=== PATIENT | female | born 1995 | race Caucasian/White ===

== ENCOUNTER 2017-03-05 13:56 | Emergency (ER) | payer OTHER ==
[~2017-03-05 13:56] MED LIST: HYDR-971 PO
[2017-03-05] MEDS ORDERED: IV NORMAL SALINE 1,000ML 1,000 ML IV ONE (14:30)
--- NOTE | 2017-03-05 14:32 | ED.ADGEN ---
Past History Past Medical History: No Pertinent History Past Surgical History: No Surgical History Alcohol Use: None Drug Use: None Adult General Chief Complaint Chief Complaint abdominal cramping, vaginal bleeding HPI HPI Patient is a 21 year old female who presents with abdominal cramping, vaginal bleeding approximately 1 pad per hour, started 2 days ago. She hasn't taken anything today for her symptoms. She had her norplant arm control removed a week ago. She started on oral control. The reason the norplant was removed was due to prolonged breakthrough bleeding. She's had an appendectomy in the past, denies other vaginal bleeding, no changes in urination or bowel movement. Review of Systems Review of Systems Constitutional: Denies fever or chills [] Eyes: Denies change in visual acuity, redness, or eye pain [] HENT: Denies nasal congestion or sore throat [] Respiratory: Denies cough or shortness of breath [] Cardiovascular: denies chest pain GI: Denies nausea, vomiting, bloody stools or diarrhea [] : Denies dysuria or hematuria [] Musculoskeletal: Denies back pain or joint pain, reports left arm pain of the upper arm where the norplant was removed. Integument: Denies rash or skin lesions [] Neurologic: Denies headache, focal weakness or sensory changes [] Current Medications Current Medications Current Medications Medications (Trade) Dose Ordered Sig/Radha Start Time Stop Time Status Last Admin Dose Admin Sodium Chloride (Iv Sodium Chloride 0.9% 1,000ml) 1,000 ml @ 1,000 mls/hr 1X ONCE 03/05/17 14:30 03/05/17 14:30 DC Allergies Allergies Allergies Coded Allergies Type Severity Reaction Last Updated Verified No Known Allergies Allergy Unknown 08/20/16 Yes Physical Exam Physical Exam Constitutional: Well developed, well nourished, no acute distress, non-toxic appearance. [] HENT: Normocephalic, atraumatic, bilateral external ears normal, oropharynx moist, no oral exudates, nose normal. [] Eyes: PERRLA, EOMI, conjunctiva normal, no discharge. [] Neck: Normal range of motion, no tenderness, supple, no stridor. [] Cardiovascular:Heart rate regular rhythm, no murmur [] Lungs & Thorax: Bilateral breath sounds clear to auscultation [] Abdomen: Bowel sounds normal, soft, no tenderness, no masses, no pulsatile masses. no guarding or peritoneal signs Skin: Warm, dry, no erythema, no rash. [] Back: No tenderness, no CVA tenderness. [] Extremities: LUE with ttp no erythema or fluctuance, no edema or discoloration , pulse intact Neurologic: Alert and oriented X 3, normal motor function, normal sensory function, no focal deficits noted. [] Psychologic: Affect normal, judgement normal, mood normal. [] Current Patient Data Vital Signs Vital Signs Date Time Temp Pulse Resp B/P Pulse Ox O2 Delivery O2 Flow Rate FiO2 03/05/17 13:56 98.5 82 18 97 Room Air Lab Results Laboratory Tests Test 03/05/17 14:30 03/05/17 14:33 POC Urine HCG, Qualitative hcg negative (Negative) POC Hemoglobin 13.6gm/dL POC Hematocrit 40% POC Sodium 140mmol/L (135-145) POC Potassium 3.4mmol/L (3.5-5.0) L POC Chloride 98mmol/L (98-110) POC Total CO2 26mmol/L (23-32) Anion Gap 21mmol/L (6-14) H POC Blood Urea Nitrogen 9mg/dL (8-26) POC Creatinine 0.8mg/dL (0.5-1.4) Glucose Level 89mg/dL (60-99) POC Ionized Calcium ([place]ney) 1.21mmol/L (1.13-1.32) EKG EKG [] Radiology/Procedures Radiology/Procedures [] Course & Med Decision Making Course & Med Decision Making Pertinent Labs and Imaging studies reviewed. (See chart for details) ucg negative, poc shows normal hemoglobin. Pt given toradol IV, return precautions given. Final Impression Final Impression Menorrhagia [] Problems: Dragon Disclaimer Dragon Disclaimer This electronic medical record was generated, in whole or in part, using a voice recognition dictation system. MAGALY JOSE MD Mar 05, 2017 14:32
[2017-03-05 14:36] LABS: HEMOGLOBIN ISTAT 13.6 gm/dL; POTASSIUM ISTAT 3.4 mmol/L (3.5-5.0)
[2017-03-05] MEDS ORDERED: IBUP600T16 PO (14:52)
[2017-03-05 15:00] LABS: BILIRUBIN,URINE NEG (NEG); CLARITY,URINE CLOUDY; COLOR,URINE AMBER; GLUCOSE,URINE NEG (NEG); NITRITE,URINE NEG (NEG); UROBILINOGEN,URINE 1 mg/dL (0.2 mg/dL)
[2017-03-05 15:05] VITALS: BP 103/65
[2017-03-05] MEDS ORDERED: KETOROLAC 30 MG/ML VIAL. IV ONE (15:10)
== END 2017-03-05 15:05 | disposition home or self-care (01) ==
LOC: ER 13:56
DX: N92.0 Excessive and frequent menstruation with regular cycle (principal); R10.9 Unspecified abdominal pain
CPT/HCPCS: 80047; 81003; 84703; 99284; J1885; 81025

== ENCOUNTER 2017-07-25 09:49 | Emergency (ER) | payer OTHER ==
[~2017-07-25] VITALS: Ht 172.7 cm; Wt 49.9 kg
[~2017-07-25 09:49] MED LIST changes: +IBUP600T16 PO
[2017-07-25 10:33] LABS: BACTERIA,URINE 0 /HPF (0-FEW); BILIRUBIN,URINE NEG (NEG); CLARITY,URINE CLEAR; COLOR,URINE STRAW; GLUCOSE,URINE NEG (NEG); NITRITE,URINE NEG (NEG); RBC,URINE 0 /HPF (0-2); SQUAMOUS EPITHELIAL CELL,UR FEW /LPF; UROBILINOGEN,URINE 0.2 mg/dL (0.2 mg/dL); WBC,URINE 0 /HPF (0-4)
--- NOTE | 2017-07-25 10:57 | PHYS DOC ---
General Chief Complaint: ABDOMINAL PAIN Stated Complaint: ABD PAIN Time Seen by MD: 09:51 Source: patient, old records Exam Limitations: no limitations Problems: History of Present Illness Initial Comments Patient is a 22-year-old female who comes in the ED complaining of abdominal discomfort. Patient states that she began feeling lower abdominal discomfort last night. She had dinner and went to bed feeling well. This morning she states she awoke with somewhat worsening of her abdominal discomfort. She says now she has mild discomfort described as cramping across her entire lower abdomen. The discomfort is described as mild to moderate. No relationship to by mouth intake , urination, bowel movements, or activity noted. No exacerbating or relieving factors. She denies any bowel or bladder symptoms. Her last menstrual period was one week ago and she has had a prior appendectomy. She's had decreased appetite today but no fever chills sweats or myalgias. She denies malaise or fatigue and in general feels well other than the discomfort. No pre-arrival treatment. The patient does mention that they have been doing increased situps preparing for a PT test. She's also been around sick contacts with viral gastrointestinal infections. She denies recent travel or any history of immunodeficiency. Timing/Duration: 24 hours Severity: mild Modifying Factors: improves with other Associated Symptoms: other Allergies: Coded Allergies: No Known Allergies (Verified Allergy, Unknown, 08/20/16) Past Medical History Medical History: other (menorrhagia) Surgical History: appendectomy Social History Smoker: non-smoker Alcohol: none Drugs: none Review of Systems Constitutional: denies chills, denies diaphoresis, denies fever, denies malaise Respiratory: denies cough, denies shortness of breath Cardiovascular: denies chest pain, denies palpitations, denies syncope Gastrointestinal: abdominal pain, denies constipation, denies diarrhea, denies nausea, denies vomiting Genitourinary: denies discharge, denies dysuria, denies frequency, denies hematuria Musculoskeletal: denies back pain, denies joint swelling, denies neck pain Psychiatric/Neurological: denies headache, denies numbness, denies paresthesia Physical Exam General Appearance: WD/WN, no apparent distress Ear, Nose, Throat: hearing grossly normal, normal ENT inspection Neck: non-tender, supple Respiratory: normal breath sounds, no respiratory distress Cardiovascular: normal peripheral pulses, regular rate, rhythm Gastrointestinal: soft (nondistended, very mild lower abdominal tenderness without rebound, guarding or masses palpated. Negative Melgar and McBurney, no skin changes, bowel sounds are normal.) Back: no CVA tenderness, no vertebral tenderness Extremities: non-tender, normal inspection Neurologic/Psychiatric: no motor/sensory deficits, alert, normal mood/affect, oriented x 3 Skin: normal color, warm/dry Orders, Labs, Meds Urinalysis unremarkable, urine negative. Previously well 22-year-old female comes to the ED with less than 24 hours lower abdominal cramping, mild loss of appetite. Urine studies and physical exam unremarkable, her vital signs within normal limits. No indication for further emergent testing noted, I discuss symptomatic treatment and close PCP follow-up, as she may have an evolving process and just be the initial stages. She expressed agreement and understanding with the treatment plan. Departure Time of Disposition: 10:55 Disposition: 01 HOME, SELF-CARE Diagnosis: abdominal pain Condition: STABLE Patient Instructions: Abdominal Pain (Nonspecific) Additional Instructions: As discussed no specific emergent cause noted in the emergency department to explain your abdominal discomfort. You may be in the early stages of a viral or bacterial infection that is still evolving. Work excuse for today. Clear liquids today, advance diet as tolerated tomorrow. [id number] Tylenol and Pepcid as well as Pepto-Bismol, etc. as needed. Prescription: Dicyclomine, take as directed. Follow-up on post tomorrow for recheck and further evaluation if necessary. Return to ED with new or changing symptoms. CLARIBEL EID DO Jul 25, 2017 10:57
[2017-07-25] MEDS ORDERED: DICY20TA3 PO (10:58)
[2017-07-25 11:06] VITALS: BP 104/67
== END 2017-07-25 11:05 | disposition home or self-care (01) ==
LOC: ER 09:49
DX: R10.30 Lower abdominal pain, unspecified (principal); R63.0 Anorexia; Z90.49 Acquired absence of other specified parts of digestive tract
CPT/HCPCS: 81001; 81025; 99283

== ENCOUNTER 2017-08-06 20:43 | Emergency (ER) | payer OTHER ==
[~2017-08-06] VITALS: Ht 172.7 cm; Wt 49.7 kg
[~2017-08-06 20:43] MED LIST changes: +DICY20TA3 PO
[2017-08-06 21:21] LABS: BACTERIA,URINE FEW /HPF (0-FEW); BILIRUBIN,URINE NEG (NEG); CLARITY,URINE CLEAR; COLOR,URINE YELLOW; GLUCOSE,URINE NEG (NEG); NITRITE,URINE NEG (NEG); RBC,URINE 0 /HPF (0-2); SQUAMOUS EPITHELIAL CELL,UR MOD /LPF; UROBILINOGEN,URINE 1 mg/dL (0.2 mg/dL)
[2017-08-06] MEDS ORDERED: cefTRIAXone IM 250 MG VIAL IM ONE (21:45)
[2017-08-06] MEDS ORDERED: DOXYCYCLINE HYCLATE 100 MG TABLET PO ONE (21:45)
[2017-08-06] MEDS ORDERED: DOXY100T PO (21:49)
[2017-08-06] MEDS ORDERED: NAPR500T PO (21:49)
--- NOTE | 2017-08-06 21:50 | PHYS DOC ---
Past History Past Medical History: No Pertinent History Past Surgical History: Appendectomy Alcohol Use: None Drug Use: None Adult General Chief Complaint Chief Complaint: ABDOMINAL PAIN HPI HPI Patient is a 22 year old female who presents with lower abdominal pain. This episode started last night. She had one episode of vomiting. No diarrhea. No urinary complaints. LMP 07/14/17 with no abnormal bleeding or discharge. No fever. She has had multiple visits here for this lower abdominal pain. Most recent was 914. She had a pelvic ultrasound performed here in November 2016 that was negative. no recent travel. Review of Systems Review of Systems Constitutional: Denies fever or chills Eyes: Denies change in visual acuity, redness, or eye pain HENT: Denies nasal congestion or sore throat Respiratory: Denies cough or shortness of breath Cardiovascular: No chest pain GI: POS lower abdominal pain, nausea, vomiting x 1; NO bloody stools or diarrhea : Denies dysuria or hematuria; normal menses. Musculoskeletal: Denies back pain or joint pain Integument: Denies rash or skin lesions Neurologic: Denies headache, focal weakness or sensory changes Allergies Allergies Allergies Coded Allergies Type Severity Reaction Last Updated Verified No Known Allergies Allergy Unknown 08/20/16 Yes Physical Exam Physical Exam Constitutional: Well developed, well nourished, no acute distress, non-toxic appearance. HENT: Normocephalic, atraumatic, bilateral external ears normal, oropharynx moist, no oral exudates, nose normal. Eyes: PERRLA, EOMI, conjunctiva normal, no discharge. Neck: Normal range of motion, no tenderness, supple, no stridor. Cardiovascular:Heart rate regular rhythm, no murmur Lungs & Thorax: Bilateral breath sounds clear to auscultation Abdomen: Bowel sounds normal, soft, minimal tenderness to lower abdomen, no masses, no pulsatile masses. : director digital strategy present. Pelvic exam with normal external exam. Minimal discharge ; no bleeding. PLUS cervical motion tenderness (replicates pain she is feeling) Skin: Warm, dry, no erythema, no rash. Back: No tenderness, no CVA tenderness. Extremities: No tenderness, no cyanosis, no clubbing, ROM intact, no edema. Neurologic: Alert and oriented X 3, normal motor function, normal sensory function, no focal deficits noted. Current Patient Data Vital Signs Vital Signs Date Time Temp Pulse Resp B/P (MAP) Pulse Ox O2 Delivery O2 Flow Rate FiO2 08/06/17 20:43 99.1 75 14 99 Room Air Lab Results Laboratory Tests Test 08/06/17 20:48 08/06/17 21:09 Urine Collection Type Unknown Urine Color Yellow Urine Clarity Clear Urine pH 5.5 Urine Specific [place] 1.025 Urine Protein Neg (NEG-TRACE) Urine Glucose (UA) Neg mg/dL (NEG) Urine Ketones (Stick) Neg mg/dL (NEG) Urine Blood Neg (NEG) Urine Nitrite Neg (NEG) Urine Bilirubin Neg (NEG) Urine Urobilinogen Dipstick 1 mg/dL (0.2 mg/dL) Urine Leukocyte Esterase Neg (NEG) Urine RBC 0 /HPF (0-2) Urine WBC 1-4 /HPF (0-4) Urine Squamous Epithelial Cells Mod /LPF Urine Bacteria Few /HPF (0-FEW) Urine Mucus Mod /LPF POC Urine HCG, Qualitative hcg negative (Negative) Course & Med Decision Making Course & Med Decision Making Evaluated patient. My differential for abdominal pain includes but is not limited to cholelithiasis or cholecystitis; renal stones; ureterolithiasis; pancreatitis; urinary tract infection; bowel obstruction; irritable bowel, pelvic infection, . No evidence of surgical abdomen. UA sent and is negative and negative UCG. Pelvic exam with POS Cervical motion tenderness. Cultures sent and pending. Will treat and have her f/u with CHEMICAL APPLICATOR. TREATED HERE WITH ROCEPHIN IM AND DOXYCYCLINE PO WITH RX FOR REMAINDER OF DOXYCYCLINE COURSE. Rx Naprosyn as well. I have spoken with the patient and/or caregivers. I have explained the patient' s condition, diagnosis and treatment plan based on the information available to me at this time. I have answered the patient's and/or caregiver's questions and addressed any concerns. The patient and/or caregivers have as good an understanding of the patient's diagnosis, condition and treatment plan as can be expected at this point. The patient's condition is stable and appropriate for discharge from the emergency department. The patient will pursue further outpatient evaluation with the primary care physician or other designated or consulting physician as outlined in the discharge instructions. The patient and/or caregivers are agreeable to this plan of care and follow-up instructions have been explained in detail. The patient and/or caregivers have received these instructions in written format and have expressed an understanding of the discharge instructions. The patient and/or caregivers are aware that any significant change in condition or worsening of symptoms should prompt an immediate return to this or the closest emergency department or a call to 911. Andrés Disclaimer Dragon Disclaimer This chart was dictated in whole or in part using Voice Recognition software in a busy, high-work load, and often noisy Emergency Department environment. It may contain unintended and wholly unrecognized errors or omissions. Departure Departure: Impression: Primary Impression: Cervicitis Disposition: HOME, SELF-CARE Condition: STABLE Referrals: OBDULIO LARSEN DO, [facility] (PCP) Patient Instructions: Cervicitis Additional Instructions: Cultures are sent and will not be resulted for up to 2 weeks. You are being treated regardless. You were given a shot here and your first dose of the pill antibiotic. You need to fill the pill antibiotic and continue it tomorrow. You are to follow up with a vocational psychologist for your Pap smear as one was not done here in the ER. Your vocational psychologist can also follow up on the pelvic pain and on the cultures. Scripts Naproxen (NAPROSYN) 500 Mg Tablet 1 TAB PO BID, #30 TAB 1 Refill Prov: LISBETH MCNEIL MD 08/06/17 Doxycycline Hyclate (DOXYCYCLINE HYCLATE) 100 Mg Tablet 1 TAB PO BID, #14 TAB Prov: LISBETH MCNEIL MD 08/06/17 LISBETH MCNEIL MD Aug 06, 2017 21:50
[2017-08-06 21:55] VITALS: BP 133/69
[2017-08-08 22:08] LABS: CHLAMYDIA PROBE Negative (Negative)
== END 2017-08-06 21:58 | disposition home or self-care (01) ==
LOC: ER 20:43
DX: N72 Inflammatory disease of cervix uteri (principal); R11.2 Nausea with vomiting, unspecified
CPT/HCPCS: 36415; 81001; 81025; 87491; 87591; 96372; 99284; J0696

== ENCOUNTER 2018-01-02 17:20 | Emergency (ER) | payer OTHER ==
[~2018-01-02 17:20] MED LIST changes: +DOXY100T PO; +NAPR-683 PO
--- NOTE | 2018-01-02 18:00 | ED.ADGEN ---
Past History Past Medical History: No Pertinent History Past Surgical History: Appendectomy Alcohol Use: None Drug Use: None Adult General Chief Complaint Chief Complaint ".. I was having some irregular periods... and spotting... and started getting some cramping... so [facility] checked me for ... and they called me and said it was positive... " HPI HPI Patient is a 22 year old female who presents with above hx and complaint abd. pain with + test at [facility]. Pt. No hx prior , STD's or trauma. No travel in last six months or hx of trauma. Lifetime sex partners x5. Pt. no hx of health problems. Pain is worse than "period cramps". Pt. localized to lower pelvis. Hx. previous abd. surgery- appendix. Review of Systems Review of Systems Constitutional: Denies fever or chills [] Eyes: Denies change in visual acuity, redness, or eye pain [. Glasses. ] HENT: Denies nasal congestion or sore throat [] Respiratory: Denies cough or shortness of breath [] Cardiovascular: No additional information not addressed in HPI [] GI: Pelvic abdominal pain, nausea. Denies vomiting, bloody stools or diarrhea [ Os closed but bleeding. Very mild Cervical motion tenderness. Rectal hard stool in vault. Very mild rebound pain to pelvic. : Denies dysuria or hematuria [] Musculoskeletal: Denies back pain or joint pain [] Integument: Denies rash or skin lesions [] Neurologic: Denies headache, focal weakness or sensory changes [] Endocrine: Denies polyuria or polydipsia [] All other systems were reviewed and found to be within normal limits, except as documented in this note. Family History Family History Non-contributory Current Medications Current Medications Current Medications Medications (Trade) Dose Ordered Sig/Radha Start Time Stop Time Status Last Admin Dose Admin Lactated Ringer's 1,000 ml @ 1,000 mls/hr 1X ONCE 01/02/18 18:15 01/02/18 19:14 DC 01/02/18 18:30 1,000 MLS/HR Oxycodone/ Acetaminophen (Percocet 5/325) 2 tab 1X ONCE 01/02/18 18:30 01/02/18 18:35 DC See Nursing for home meds Allergies Allergies Allergies Coded Allergies Type Severity Reaction Last Updated Verified No Known Allergies Allergy Unknown 08/20/16 Yes Physical Exam Physical Exam Constitutional: Well developed, well nourished, Moderately acute distress, non- toxic appearance. [] HENT: Normocephalic, atraumatic, bilateral external ears normal, oropharynx moist, no oral exudates, nose normal. [] Eyes: PERRLA, EOMI, conjunctiva normal, no discharge. [] Neck: Normal range of motion, no tenderness, supple, no stridor. [] Cardiovascular:Heart rate regular rhythm, no murmur [] Lungs & Thorax: Bilateral breath sounds clear to auscultation [] Abdomen: Bowel sounds normal, soft, pelvic tenderness, no masses, no pulsatile masses. Old surgery scars. Min. OS bleeding/ spotting. No localized adnexal tenderness. Some mild cervical motion tenderness. Rectal exam heart stool. Skin: Warm, dry, no erythema, no rash. [] Back: No tenderness, no CVA tenderness. [] Extremities: No tenderness, no cyanosis, no clubbing, ROM intact, no edema. [] Up able to hop up and down with out pelvic pain. Neurologic: Alert and oriented X 3, normal motor function, normal sensory function, no focal deficits noted. [] Psychologic: Affect anxious, judgement normal, mood normal. [] Current Patient Data Vital Signs Vital Signs Date Time Temp Pulse Resp B/P (MAP) Pulse Ox O2 Delivery O2 Flow Rate FiO2 01/02/18 21:20 98.3 64 16 123/71 (88) 98 Room Air Lab Results Laboratory Tests Test 01/02/18 17:50 01/02/18 18:50 01/02/18 19:12 White Blood Count 11.9 x10^3/uL (4.0-11.0) H Red Blood Count 4.69 x10^6/uL (3.50-5.40) Hemoglobin 13.6 g/dL (12.0-15.5) Hematocrit 40.8 % (36.0-47.0) Mean Corpuscular Volume 87 fL (79-100) Mean Corpuscular Hemoglobin 29 pg (25-35) Mean Corpuscular Hemoglobin Concent 33 g/dL (31-37) Red Cell Distribution Width 13.5 % (11.5-14.5) Platelet Count 226 x10^3/uL (140-400) Neutrophils (%) (Auto) 71 % (31-73) Lymphocytes (%) (Auto) 22 % (24-48) L Monocytes (%) (Auto) 5 % (0-9) Eosinophils (%) (Auto) 1 % (0-3) Basophils (%) (Auto) 0 % (0-3) Neutrophils # (Auto) 8.4 x10^3uL (1.8-7.7) H Lymphocytes # (Auto) 2.7 x10^3/uL (1.0-4.8) Monocytes # (Auto) 0.5 x10^3/uL (0.0-1.1) Eosinophils # (Auto) 0.2 x10^3/uL (0.0-0.7) Basophils # (Auto) 0.0 x10^3/uL (0.0-0.2) Maternal Serum HCG Beta Subunit 1178 mIU/mL (0-6) H Sodium Level 138 mmol/L (136-145) Potassium Level 4.2 mmol/L (3.5-5.1) Chloride Level 101 mmol/L (98-107) Carbon Dioxide Level 28 mmol/L (21-32) Anion Gap 9 (6-14) Blood Urea Nitrogen 13 mg/dL (7-20) Creatinine 0.7 mg/dL (0.6-1.0) Estimated GFR (Cockcroft-Gault) 106.7 Glucose Level 89 mg/dL (70-99) Calcium Level 9.1 mg/dL (8.5-10.1) Total Bilirubin 0.6 mg/dL (0.2-1.0) Direct Bilirubin 0.1 mg/dL (0.0-0.2) Aspartate Amino Transferase (AST) 17 U/L (15-37) Alanine Aminotransferase (ALT) 18 U/L (14-59) Alkaline Phosphatase 83 U/L (46-116) Total Protein 7.5 g/dL (6.4-8.2) Albumin 4.1 g/dL (3.4-5.0) Lipase 127 U/L (73-393) Prothrombin Time 10.3 SEC (9.4-11.4) Prothrombin Time INR 1.0 (0.9-1.1) PTT 29 SEC (23-33) Urine Collection Type Unknown Urine Color Yellow Urine Clarity Hazy Urine pH 5.5 Urine Specific [place] 1.025 Urine Protein Neg (NEG-TRACE) Urine Glucose (UA) Neg mg/dL (NEG) Urine Ketones (Stick) 15 mg/dL (NEG) Urine Blood Large (NEG) Urine Nitrite Neg (NEG) Urine Bilirubin Neg (NEG) Urine Urobilinogen Dipstick 0.2 mg/dL (0.2 mg/dL) Urine Leukocyte Esterase Neg (NEG) Urine RBC 6-10 /HPF (0-2) Urine WBC Occ /HPF (0-4) Urine Squamous Epithelial Cells Mod /LPF Urine Bacteria Few /HPF (0-FEW) Urine Mucus Mod /LPF Microbiology 01/02/18 Wet Prep - Final, Complete Microbiology 01/02/18 Wet Prep - Final, Complete EKG EKG [] Radiology/Procedures Radiology/Procedures Ultrasound shows an intermediate stripe of 6 mm. No IUP. Some small nonspecific pelvic fluid. See formal report when available Course & Med Decision Making Course & Med Decision Making Pertinent Labs and Imaging studies reviewed. (See chart for details) Discussed presentation, testing and tx. plan with Dr. López- advised followup. Repeat B-HCG within 3 days. Pt. must also follow up pending cultures and labs. Pt. take vitamins, Pelvic rest. Return if any concerns. Pad counts. Return if any concerns.. Take only Tylenol for pain. Must follow-up and review all labs collected here. [] Final Impression Final Impression 1. Vaginal Bleeding- 2. Abdomen Pain[] 3. Threaten 4. Possible Ectopic - as differential diagnosis 5. B-HCG= 1178 6. Blood Type A+ 7. Leukocytosis- 11.9 Problems: Dragon Disclaimer Dragon Disclaimer This electronic medical record was generated, in whole or in part, using a voice recognition dictation system. JAYY DONOVAN MD Jan 02, 2018 18:00
[2018-01-02] MEDS ORDERED: IV RINGERS SOLUTION,LACTATED 1,000 ML IV ONE (18:15)
[2018-01-02] MEDS ORDERED: oxyCODONE/APAP 5/325 1 TAB TABLET PO ONE (18:30)
[2018-01-02 19:09] LABS: BASO % 0 % (0-3); EOS # 0.2 x10^3/uL (0.0-0.7); EOS % 1 % (0-3); HEMATOCRIT 40.8 % (36.0-47.0); HEMOGLOBIN 13.6 g/dL (12.0-15.5); LYMPH # 2.7 x10^3/uL (1.0-4.8); LYMPH % 22 % (24-48); MEAN CORPUSCULAR HEMOGLOBIN 29 pg (25-35); MEAN CORPUSCULAR HGB CONC 33 g/dL (31-37); MEAN CORPUSCULAR VOLUME 87 fL (79-100); MONO # 0.5 x10^3/uL (0.0-1.1); MONO % 5 % (0-9); NEUT # 8.4 x10^3uL (1.8-7.7); NEUT % 71 % (31-73); PLATELET COUNT 226 x10^3/uL (140-400); RED BLOOD COUNT 4.69 x10^6/uL (3.50-5.40); RED CELL DISTRIBUTION WIDTH 13.5 % (11.5-14.5); WHITE BLOOD COUNT 11.9 x10^3/uL (4.0-11.0)
[2018-01-02 19:15] LABS: ALBUMIN 4.1 g/dL (3.4-5.0); CALCIUM 9.1 mg/dL (8.5-10.1); CREATININE 0.7 mg/dL (0.6-1.0); DIRECT BILIRUBIN 0.1 mg/dL (0.0-0.2); GFR 106.7; POTASSIUM 4.2 mmol/L (3.5-5.1); TOTAL BILIRUBIN 0.6 mg/dL (0.2-1.0); TOTAL PROTEIN 7.5 g/dL (6.4-8.2)
--- NOTE | 2018-01-02 20:24 | RAD ---
EXAM: Obstetrics sonogram. HISTORY: Vaginal bleeding. TECHNIQUE: Transabdominal and transvaginal sonographic imaging of the pelvis was performed. COMPARISON: None. FINDINGS: The uterus measures 8.7 x 3.9 x 3.5 cm. The cervix measures 3.4 cm in length. The endometrial stripe measures 6 mm in thickness. No intrauterine gestational sac is seen. There is a small amount of free fluid within the posterior cul-de-sac. The ovaries are normal in size and demonstrate normal blood flow. There are stable ovarian follicles. IMPRESSION: 1. Small amount of nonspecific pelvic free fluid. 2. No intrauterine gestational sac. Correlate with serial beta hCG levels. If the level which is within expected range for identification of an intrauterine gestational sac or increasing, short-term follow-up is recommended to exclude ectopic . Electronically signed by: Trina Stone MD (01/02/2018 8:21 PM) [facility]
[2018-01-02 20:41] LABS: BILIRUBIN,URINE NEG (NEG); CLARITY,URINE HAZY; COLOR,URINE YELLOW; GLUCOSE,URINE NEG (NEG); NITRITE,URINE NEG (NEG); UROBILINOGEN,URINE 0.2 mg/dL (0.2 mg/dL)
[2018-01-02 20:42] LABS: BACTERIA,URINE FEW /HPF (0-FEW); SQUAMOUS EPITHELIAL CELL,UR MOD /LPF; WBC,URINE OCC /HPF (0-4)
[2018-01-02 21:20] VITALS: BP 123/71
[2018-01-03 23:08] LABS: HCV ANTIBODY <0.1 s/co ratio (0.0-0.9); HEP A IGM ABDY Negative (Negative)
[2018-01-06 14:12] LABS: CHLAMYDIA PROBE Negative (Negative)
== END 2018-01-02 21:20 | disposition home or self-care (01) ==
LOC: ER 17:20
DX: O20.0 Threatened abortion (principal); D72.829 Elevated white blood cell count, unspecified; Z3A.00 Weeks of gestation of pregnancy not specified
CPT/HCPCS: 36415; 76801; 76817; 80048; 80074; 80076; 81001; 83690; 84702; 85025; 85610; 85730; 86593; 86900; 86901; 87491; 87591; 96360; 99285; J7120; Q0111

== ENCOUNTER 2018-01-22 11:05 | Emergency (ER) | payer OTHER ==
[~2018-01-22] VITALS: Ht 147.3 cm; Wt 49.9 kg
[2018-01-22] MEDS ORDERED: IV NORMAL SALINE 1,000ML 1,000 ML IV SCH (11:37)
[2018-01-22 11:58] LABS: BASO % 1 % (0-3); EOS # 0.1 x10^3/uL (0.0-0.7); EOS % 2 % (0-3); HEMATOCRIT 40.4 % (36.0-47.0); HEMOGLOBIN 13.7 g/dL (12.0-15.5); LYMPH # 2.3 x10^3/uL (1.0-4.8); LYMPH % 30 % (24-48); MEAN CORPUSCULAR HEMOGLOBIN 30 pg (25-35); MEAN CORPUSCULAR HGB CONC 34 g/dL (31-37); MEAN CORPUSCULAR VOLUME 87 fL (79-100); MONO # 0.4 x10^3/uL (0.0-1.1); MONO % 6 % (0-9); NEUT # 4.9 x10^3uL (1.8-7.7); NEUT % 63 % (31-73); PLATELET COUNT 204 x10^3/uL (140-400); RED BLOOD COUNT 4.66 x10^6/uL (3.50-5.40); RED CELL DISTRIBUTION WIDTH 13.6 % (11.5-14.5); WHITE BLOOD COUNT 7.8 x10^3/uL (4.0-11.0)
--- NOTE | 2018-01-22 12:16 | PHYS DOC ---
Past History Past Medical History: No Pertinent History Past Surgical History: Appendectomy Alcohol Use: None Drug Use: None Adult General Chief Complaint Chief Complaint: ABDOMINAL PAIN HPI HPI 22-year-old otherwise healthy female presenting to the emergency department today with lower abdominal cramping this started today. 2 weeks ago she was seen for having a miscarriage. She had a negative ultrasound with positive beta- hCG which she was able to follow up with her primary care physician and her hCG was dropping significantly and was subsequent diagnosis of miscarriage. For the last 2 weeks she has been feeling well. The patient started light duty today after a light jog began feeling her cramping. She denies vaginal bleeding, or changes in vaginal discharge. She denies recent STD exposures. Past medical history none Surgical history appendectomy Social history denies smoking drinking or IV drug use. Allergies none ROS negative for chest pain shortness of breath, fevers or chills. All other review of systems is negative unless otherwise noted in history of present illness. ED course: 22-year-old female presenting to the emergency department today with cramping abdominal pain after miscarriage. Upon arrival the patient is afebrile with a normal heart rate. Blood pressure within normal limits. On examination the patient's abdomen is soft nontender non-distended. Negative McBurney's point. Negative Melgar sign. Otherwise exam is unremarkable. Blood work obtained. IV fluids along with pain medication administered. On reexamination the patient is feeling better. Abdomen continues to be soft and nontender. Patient continues to have an elevated beta hCG that is below the discriminatory zone. I offered the patient to attempt an ultrasound here today or to follow-up with OB tomorrow. Patient prefers to follow-up with an formulator tomorrow. She does not have vaginal bleeding and her pain is almost nearly resolved at this point. The patient was then discharged home in stable condition. They were to return if their symptoms worsened or if they were concerned for any reason. [id number] discharge instructions and return precautions were given. Patient' s questions were answered to their satisfaction. Patient is comfortable with plan. Review of Systems Review of Systems SEE ABOVE. Current Medications Current Medications Current Medications Medications (Trade) Dose Ordered Sig/Radha Start Time Stop Time Status Last Admin Dose Admin Fentanyl Citrate (Fentanyl 2ml Vial) 25 mcg PRN Q15MIN PRN 01/22/18 11:45 01/23/18 11:44 01/22/18 11:53 25 MCG Sodium Chloride 1,000 ml @ 1,000 mls/hr Q1H 01/22/18 11:37 01/22/18 12:36 01/22/18 11:52 1,000 MLS/HR Allergies Allergies Allergies Coded Allergies Type Severity Reaction Last Updated Verified No Known Allergies Allergy Unknown 08/20/16 Yes Physical Exam Physical Exam SEE ABOVE Constitutional: Well developed, well nourished, no acute distress, non-toxic appearance. [] HENT: Normocephalic, atraumatic, bilateral external ears normal, oropharynx moist, no oral exudates, nose normal. [] Eyes: PERRLA, EOMI, conjunctiva normal, no discharge. [] Neck: Normal range of motion, no tenderness, supple, no stridor. [] Cardiovascular:Heart rate regular rhythm, no murmur [] Lungs & Thorax: Bilateral breath sounds clear to auscultation [] Abdomen: Bowel sounds normal, soft, no tenderness, no masses, no pulsatile masses. [] Skin: Warm, dry, no erythema, no rash. [] Back: No tenderness, no CVA tenderness. [] Extremities: No tenderness, no cyanosis, no clubbing, ROM intact, no edema. [] Neurologic: Alert and oriented X 3, normal motor function, normal sensory function, no focal deficits noted. [] Psychologic: Affect normal, judgement normal, mood normal. [] Current Patient Data Vital Signs Vital Signs Date Time Temp Pulse Resp B/P (MAP) Pulse Ox O2 Delivery O2 Flow Rate FiO2 01/22/18 11:15 98.6 78 16 99 Room Air Lab Results Laboratory Tests Test 01/22/18 11:47 White Blood Count 7.8 x10^3/uL (4.0-11.0) Red Blood Count 4.66 x10^6/uL (3.50-5.40) Hemoglobin 13.7 g/dL (12.0-15.5) Hematocrit 40.4 % (36.0-47.0) Mean Corpuscular Volume 87 fL (79-100) Mean Corpuscular Hemoglobin 30 pg (25-35) Mean Corpuscular Hemoglobin Concent 34 g/dL (31-37) Red Cell Distribution Width 13.6 % (11.5-14.5) Platelet Count 204 x10^3/uL (140-400) Neutrophils (%) (Auto) 63 % (31-73) Lymphocytes (%) (Auto) 30 % (24-48) Monocytes (%) (Auto) 6 % (0-9) Eosinophils (%) (Auto) 2 % (0-3) Basophils (%) (Auto) 1 % (0-3) Neutrophils # (Auto) 4.9 x10^3uL (1.8-7.7) Lymphocytes # (Auto) 2.3 x10^3/uL (1.0-4.8) Monocytes # (Auto) 0.4 x10^3/uL (0.0-1.1) Eosinophils # (Auto) 0.1 x10^3/uL (0.0-0.7) Basophils # (Auto) 0.0 x10^3/uL (0.0-0.2) EKG EKG [] Radiology/Procedures Radiology/Procedures [] Course & Med Decision Making Course & Med Decision Making Pertinent Labs and Imaging studies reviewed. (See chart for details) [] Dragon Disclaimer Dragon Disclaimer This electronic medical record was generated, in whole or in part, using a voice recognition dictation system. Departure Departure: Impression: Primary Impression: Abdominal pain Disposition: 01 HOME, SELF-CARE Referrals: OBDULIO LARSEN DO, [facility] (PCP) Patient Instructions: Abdominal Pain (Nonspecific) Additional Instructions: Thank you for allowing us to participate in your care today. Followup with our OB Dr. López tomorrow for serial HCG testing and further care. Dr. Giovany López Jr, MD [employer]web site developer in [place], [place] Address: [address] [place] [address] [address], [place] [address] Call your Primary Doctor tomorrow and inform them of your visit today. If you do not have a primary care provider you can ask for a list of our primary care providers. Return to the emergency department you have any new or concerning findings. This should be evaluated by the primary care physician and any necessary consulting services for continued management within a few days after discharge. Return to emergency room if you have any new or concerning symptoms including but not limited to fever, chills, nausea, vomiting, intractable pain, any new rashes, chest pain, shortness of air, uncontrolled bleeding, difficulty breathing, and/or vision loss. JOSELITO OTOOLE MD Jan 22, 2018 12:16
[2018-01-22 12:17] LABS: ALBUMIN 3.8 g/dL (3.4-5.0); CREATININE 0.7 mg/dL (0.6-1.0); DIRECT BILIRUBIN 0.1 mg/dL (0.0-0.2); GFR 106.7; POTASSIUM 3.7 mmol/L (3.5-5.1); TOTAL BILIRUBIN 0.7 mg/dL (0.2-1.0); TOTAL PROTEIN 7.1 g/dL (6.4-8.2)
[2018-01-22 13:06] LABS: BACTERIA,URINE FEW /HPF (0-FEW); BILIRUBIN,URINE NEG (NEG); CLARITY,URINE HAZY; COLOR,URINE YELLOW; GLUCOSE,URINE NEG (NEG); NITRITE,URINE NEG (NEG); RBC,URINE 0 /HPF (0-2); SQUAMOUS EPITHELIAL CELL,UR MOD /LPF; UROBILINOGEN,URINE 1 mg/dL (0.2 mg/dL); WBC,URINE RARE /HPF (0-4)
[2018-01-22 14:10] VITALS: BP 111/67
== END 2018-01-22 14:10 | disposition home or self-care (01) ==
LOC: ER 11:05
DX: R10.30 Lower abdominal pain, unspecified (principal); Z90.49 Acquired absence of other specified parts of digestive tract
CPT/HCPCS: 36415; 80048; 80076; 81001; 81025; 83690; 84702; 85025; 96361; 96374; 99284; J3010; J7030

== ENCOUNTER 2018-02-10 21:01 | Emergency (ER) | payer OTHER ==
[~2018-02-10] VITALS: Ht 299.7 cm; Wt 49.7 kg
[2018-02-10 21:05] VITALS: BP 115/65
--- NOTE | 2018-02-10 21:30 | PHYS DOC ---
Past History Past Medical History: No Pertinent History Past Surgical History: Appendectomy Alcohol Use: None Drug Use: None Adult General Chief Complaint Chief Complaint: NAUSEA/VOMITING/DIARRHEA HPI HPI Patient is a 22-year-old female who presents after having a D&C done today at noon with complaints of vomiting that is nonbloody, no diarrhea, no fevers, no chills. Pain is currently well controlled. Patient started vomiting shortly after the procedure. Patient has no other complaints Review of Systems Review of Systems Constitutional: Denies fever or chills [] HENT: Denies nasal congestion or sore throat [] Respiratory: Denies cough or shortness of breath [] Cardiovascular: No chest pain GI: Denies abdominal pain, , bloody stools or diarrhea. Yes to nausea and vomiting : Denies dysuria or hematuria [] Musculoskeletal: Denies back pain or joint pain [] Integument: Denies rash or skin lesions [] Neurologic: Denies headache, focal weakness or sensory changes [] All other systems were reviewed and found to be within normal limits, except as documented in this note. Current Medications Current Medications Current Medications Medications (Trade) Dose Ordered Sig/Radha Start Time Stop Time Status Last Admin Dose Admin Ondansetron HCl (Zofran) 4 mg 1X ONCE 02/10/18 21:30 02/10/18 21:31 Sodium Chloride 1,000 ml @ 1,000 mls/hr 1X ONCE 02/10/18 21:30 02/10/18 22:29 Allergies Allergies Allergies Coded Allergies Type Severity Reaction Last Updated Verified No Known Allergies Allergy Unknown 08/20/16 Yes Physical Exam Physical Exam Constitutional: Well developed, well nourished, no acute distress, non-toxic appearance. Looks tired HENT: Normocephalic, atraumatic, bilateral external ears normal, oropharynx dry , no oral exudates, nose normal. [] Eyes: EOMI, conjunctiva normal, no discharge. [] Neck: Normal range of motion, trachea midline, no stridor. [] Cardiovascular:Heart rate regular rhythm, no murmur equal pulses normal perfusion Lungs & Thorax: Bilateral breath sounds clear to auscultation on no tachypnea Abdomen: Bowel sounds normal, soft, no tenderness, no masses, no pulsatile masses. [] Skin: Warm, dry, no erythema, no rash. [] Back: Normal range of motion Extremities: No tenderness, no DVT, ROM intact, no edema. [] Neurologic: Alert and oriented X 3, normal motor function, and relates in the ED with normal gait and without assistance no focal deficits noted. [] Psychologic: Affect normal, judgement normal, mood normal. [] EKG EKG [] Radiology/Procedures Radiology/Procedures [] Course & Med Decision Making Course & Med Decision Making Pertinent Labs and Imaging studies reviewed. (See chart for details) 220 no vomiting in the ED [] Dragon Disclaimer Dragon Disclaimer This electronic medical record was generated, in whole or in part, using a voice recognition dictation system. Departure Departure: Impression: Primary Impression: Nausea and vomiting Additional Impression: Post procedure discomfort Disposition: 01 HOME, SELF-CARE Condition: STABLE Referrals: NON,STAFF (PCP) Please follow-up with your doctor for recheck and reevaluation in 2 days Patient Instructions: Nausea and Vomiting Scripts Ondansetron Hcl (ZOFRAN) 4 Mg Tablet 1 TAB PO Q8HRS for 3 Days, #9 TAB Prov: Tylor SOMERS MD 02/10/18 Problem Qualifiers Tylor SOMERS MD Feb 10, 2018 21:30
[2018-02-10] MEDS: ONDANSETRON PF 4 MG/2 ML VIAL. IV ONE ×2 (21:35→22:28)
[2018-02-10] MEDS: IV NORMAL SALINE 1,000ML 1,000 ML IV ONE (21:36)
[2018-02-10 22:17] LABS: CALCIUM 9.2 mg/dL (8.5-10.1); CREATININE 0.9 mg/dL (0.6-1.0); GFR 79.8; POTASSIUM 4.1 mmol/L (3.5-5.1)
[2018-02-10] MEDS ORDERED: ONDA4TAB7 PO (22:22)
== END 2018-02-10 22:35 | disposition home or self-care (01) ==
LOC: ER 21:01
DX: R11.2 Nausea with vomiting, unspecified (principal); G89.18 Other acute postprocedural pain
CPT/HCPCS: 36415; 80048; 96361; 96374; 96376; 99284; J2405; J7030

== ENCOUNTER 2018-03-27 06:01 | Emergency (ER) | payer OTHER ==
[~2018-03-27] VITALS: Ht 149.9 cm; Wt 43.1 kg
[~2018-03-27 06:01] MED LIST changes: +ONDA4TAB7 PO
[2018-03-27] MEDS ORDERED: 0.9 % SODIUM CHLORIDE 10 ML DISP.SYRIN. IV PRN (06:30)
[2018-03-27] MEDS ORDERED: IV NORMAL SALINE 1,000ML 1,000 ML IV SCH (06:30)
[2018-03-27 06:43] LABS: BASO % 0 % (0-3); EOS # 0.2 x10^3/uL (0.0-0.7); EOS % 3 % (0-3); HEMATOCRIT 38.6 % (36.0-47.0); HEMOGLOBIN 13.2 g/dL (12.0-15.5); LYMPH # 2.5 x10^3/uL (1.0-4.8); LYMPH % 38 % (24-48); MEAN CORPUSCULAR HEMOGLOBIN 30 pg (25-35); MEAN CORPUSCULAR HGB CONC 34 g/dL (31-37); MEAN CORPUSCULAR VOLUME 87 fL (79-100); MONO # 0.5 x10^3/uL (0.0-1.1); MONO % 7 % (0-9); NEUT # 3.4 x10^3uL (1.8-7.7); NEUT % 52 % (31-73); PLATELET COUNT 201 x10^3/uL (140-400); RED BLOOD COUNT 4.45 x10^6/uL (3.50-5.40); RED CELL DISTRIBUTION WIDTH 13.1 % (11.5-14.5); WHITE BLOOD COUNT 6.6 x10^3/uL (4.0-11.0)
--- NOTE | 2018-03-27 06:43 | PHYS DOC ---
Past History Past Medical History: No Pertinent History Past Surgical History: Appendectomy, Other Alcohol Use: None Drug Use: None Adult General Chief Complaint Chief Complaint: ABDOMINAL PAIN [facility] 22-year-old female patient states she had a D&C 1 month ago and started to exercise yesterday. Patient complaining of pain in right lower quadrant since yesterday as a constant pain that getting force with movement. Patient denies nausea and vomiting, diarrhea and constipation, urinary symptom, fever and chills, vaginal bleeding or discharge. Rated her pain /10. Review of Systems Review of Systems Constitutional: Denies fever or chills [] Eyes: Denies change in visual acuity, redness, or eye pain [] HENT: Denies nasal congestion or sore throat [] Respiratory: Denies cough or shortness of breath [] Cardiovascular: No additional information not addressed in HPI [] GI: Reports abdominal pain, denies nausea, vomiting, bloody stools or diarrhea [ ] : Denies dysuria or hematuria [] Musculoskeletal: Denies back pain or joint pain [] Integument: Denies rash or skin lesions [] Neurologic: Denies headache, focal weakness or sensory changes [] Endocrine: Denies polyuria or polydipsia [] All other systems were reviewed and found to be within normal limits, except as documented in this note. Allergies Allergies Allergies Coded Allergies Type Severity Reaction Last Updated Verified No Known Allergies Allergy Unknown 08/20/16 Yes Physical Exam Physical Exam Constitutional: Well developed, well nourished, mild distress, non-toxic appearance. [] HENT: Normocephalic, atraumatic Eyes: PERRLA, EOMI, conjunctiva normal, no discharge. [] Neck: Normal range of motion, no tenderness, supple, no stridor. [] Cardiovascular:Heart rate regular rhythm, no murmur [] Lungs & Thorax: Bilateral breath sounds clear to auscultation [] Abdomen: Bowel sounds normal, soft, no tenderness, no masses, no pulsatile masses. [] Skin: Warm, dry, no erythema, no rash. [] Back: No tenderness, no CVA tenderness. [] Extremities: No tenderness, no cyanosis, no clubbing, ROM intact, no edema. [] Neurologic: Alert and oriented X 3, normal motor function, normal sensory function, no focal deficits noted. [] Psychologic: Affect normal, judgement normal, mood normal. [] Current Patient Data Vital Signs Vital Signs Date Time Temp Pulse Resp B/P (MAP) Pulse Ox O2 Delivery O2 Flow Rate FiO2 03/27/18 06:15 98.1 65 18 97 Room Air Lab Results Laboratory Tests Test 03/27/18 05:22 POC Urine HCG, Qualitative hcg negative (Negative) EKG EKG [] Radiology/Procedures Radiology/Procedures [] Course & Med Decision Making Course & Med Decision Making Pertinent Labs reviewed. (See chart for details) []discharge: I've spoken with the patient and/or caregivers. I've explained the patient's condition, diagnosis and treatment plan based on information available to me at this time. I've answered the patient's and/or caregivers questions and addressed any concerns. The patient and/or caregivers have a good understanding the patient's diagnosis, condition and treatment plan as can be expected at this point. Vital signs have been stabilized. The patient's condition is stable for discharge from the emergency department. The patient will pursue further outpatient evaluation with her primary care provider or other designated consulting physician as outlined in the discharge instructions. Patient and/or caregivers are agreeable to this plan of care and follow-up instructions have been explained in detail. The patient and/or caregivers have received these instructions in written format and expressed understanding of these discharge instructions. The patient and her caregivers are aware that if any significant change in condition or worsening of symptoms should prompt him to immediately return to this of the closest emergency department. If an emergent department is not readily available I would encourage him to call 911. Dragon Disclaimer Dragon Disclaimer This electronic medical record was generated, in whole or in part, using a voice recognition dictation system. Departure Departure: Impression: Primary Impression: Strain of abdominal muscle Disposition: HOME, SELF-CARE (at 0755) Condition: IMPROVED Referrals: VIGNESH EARL MD (PCP) Patient Instructions: Muscle Strain Additional Instructions: Drink plenty of liquids Follow-up with your primary care physician in 3-5 days Return to ER if not getting better Apply ice on the affected area Scripts Naproxen (NAPROSYN) 500 Mg Tablet 1 TAB PO BID, #14 TAB 1 Refill Prov: RAQUEL OBREGON MD 03/27/18 RAQUEL OBREGON MD March 27, 2018 06:43
[2018-03-27] MEDS ORDERED: KETOROLAC 30 MG/ML VIAL. IV ONE (06:45)
[2018-03-27 06:50] LABS: BACTERIA,URINE 0 /HPF (0-FEW); BILIRUBIN,URINE NEG (NEG); CLARITY,URINE CLEAR; COLOR,URINE AMBER; GLUCOSE,URINE NEG (NEG); NITRITE,URINE NEG (NEG); RBC,URINE 0 /HPF (0-2); SQUAMOUS EPITHELIAL CELL,UR FEW /LPF; UROBILINOGEN,URINE 1 mg/dL (0.2 mg/dL); WBC,URINE OCC /HPF (0-4)
[2018-03-27 07:14] LABS: ALBUMIN 3.7 g/dL (3.4-5.0); ALBUMIN/GLOBULIN RATIO 1.2 (1.0-1.7); CALCIUM 8.5 mg/dL (8.5-10.1); CREATININE 0.9 mg/dL (0.6-1.0); GFR 79.8; POTASSIUM 3.8 mmol/L (3.5-5.1); TOTAL BILIRUBIN 0.5 mg/dL (0.2-1.0); TOTAL PROTEIN 6.7 g/dL (6.4-8.2)
[2018-03-27] MEDS ORDERED: NAPR-683 PO (07:57)
[2018-03-27 08:05] VITALS: BP 101/59
== END 2018-03-27 08:05 | disposition home or self-care (01) ==
LOC: ER 06:01
DX: S39.011A Strain of muscle, fascia and tendon of abdomen, initial encounter (principal); Z90.49 Acquired absence of other specified parts of digestive tract; X58.XXXA Exposure to other specified factors, initial encounter; Y93.B9 Activity, other involving muscle strengthening exercises; Y99.8 Other external cause status; Y92.89 Other specified places as the place of occurrence of the external cause
CPT/HCPCS: 36415; 80053; 81001; 81025; 83690; 85025; 96374; 99284; J1885; J7030

== ENCOUNTER 2018-07-07 06:54 | Emergency (ER) | payer OTHER ==
[~2018-07-07] VITALS: Ht 149.9 cm; Wt 48.5 kg
--- NOTE | 2018-07-07 07:32 | PHYS DOC ---
Past History Past Medical History: No Pertinent History Past Surgical History: Appendectomy, Other Smoking: Non-smoker Alcohol Use: None Drug Use: None Adult General Chief Complaint Chief Complaint: dizziness HPI HPI Patient is a 23 year old female who presents with complaining of dizziness and near syncope. 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 Patient states she was not able to drive and called her after driving [facility] to the hospital to give her a ride. Patient denies history of the same problem, , focal neuro deficit, vomiting. Review of Systems Review of Systems Constitutional: Denies fever or chills [] Eyes: Denies change in visual acuity, redness, or eye pain [] HENT: Denies nasal congestion or sore throat [] Respiratory: Denies cough or shortness of breath [] Cardiovascular: No additional information not addressed in HPI [] GI: Denies abdominal pain, nausea, vomiting, bloody stools or diarrhea [] : Denies dysuria or hematuria [] Musculoskeletal: Denies back pain or joint pain [] Integument: Denies rash or skin lesions [] Neurologic: Reports dizziness and headache, denies focal weakness or sensory changes. Endocrine: Denies polyuria or polydipsia [] All other systems were reviewed and found to be within normal limits, except as documented in this note. Allergies Allergies Allergies Coded Allergies Type Severity Reaction Last Updated Verified No Known Allergies Allergy Unknown 08/20/16 Yes Physical Exam Physical Exam Constitutional: Well developed, well nourished, mild distress, non-toxic appearance. [] HENT: Normocephalic, atraumatic, bilateral external ears normal, oropharynx moist, no oral exudates, nose normal. [] Eyes: PERRLA, EOMI, conjunctiva normal, no discharge. [] Neck: Normal range of motion, no tenderness, supple, no stridor. [] Cardiovascular:Heart rate regular rhythm, no murmur [] Lungs & Thorax: Bilateral breath sounds clear to auscultation [] Abdomen: Bowel sounds normal, soft, no tenderness, no masses, no pulsatile masses. [] Skin: Warm, dry, no erythema, no rash. [] Back: No tenderness, no CVA tenderness. [] Extremities: No tenderness, no cyanosis, no clubbing, ROM intact, no edema. [] Neurologic: Alert and oriented X 3, normal motor function, normal sensory function, no focal deficits noted. [] Psychologic: Affect normal, judgement normal, mood normal. [] EKG EKG EKG interpreted by me. EKG at 0831 showed normal sinus rhythm at rate of 90, no acute ST and T-wave abnormalities[] Radiology/Procedures Radiology/Procedures [[place] [address] IMAGING REPORT Signed PATIENT: JULIA LI ACCOUNT: [id number] : 1995 LOCATION: ER AGE: 23 SEX: F EXAM STATUS: REG ER ORD. PHYSICIAN: RAQUEL OBREGON MD REASON: near syncope PROCEDURE: CT HEAD WO CONTRAST CT of the head without contrast, 07/07/2018: HISTORY: Syncope The ventricles are within normal limits in size. There is no shift of the midline structures. There is no evidence of acute intracranial hemorrhage or mass effect. IMPRESSION: No significant abnormality is detected. Electronically signed by: Thai Aggarwal MD (07/07/2018 8:09 AM) [facility] DICTATED AND SIGNED BY: THAI AGGARWAL MD DATE: 07/07/18806 CC: OBDULIO VALENZUELA PA-C; RAQUEL OBREGON MD ~ ] Course & Med Decision Making Course & Med Decision Making Pertinent Labs and Imaging studies reviewed. (See chart for details) Evaluation of patient in ER showed 23-year-old female patient with dizziness and near syncope after doing physical activity. Patient had unremarkable physical exam, EKG, labs and CT of the head. The cystic bicuspids on unremarkable. Patient treated with IV fluid and felt better and tolerated oral intake. Plan to discharge patient home with diagnosis of near syncope. Dragon Disclaimer Dragon Disclaimer This electronic medical record was generated, in whole or in part, using a voice recognition dictation system. Departure Departure: Impression: Primary Impression: Near syncope Additional Impressions: Headache Dizziness Disposition: 01 HOME, SELF-CARE (@0915) Condition: IMPROVED Referrals: OBDULIO VALENZUELA PA-C (PCP) Patient Instructions: Dizziness, Syncope Additional Instructions: Drink plenty of liquids Follow-up with your primary care physician in 3-5 days Return to ER if not getting better Scripts Naproxen (NAPROSYN) 500 Mg Tablet 500 MG PO BID PRN for PAIN, #20 Prov: RAQUEL OBREGON MD 07/07/18 Problem Qualifiers RAQUEL OBREGON MD Jul 07, 2018 07:32
[2018-07-07 07:53] LABS: BASO % 0 % (0-3); EOS % 0 % (0-3); HEMATOCRIT 43.4 % (36.0-47.0); HEMOGLOBIN 14.9 g/dL (12.0-15.5); LYMPH # 1.3 x10^3/uL (1.0-4.8); LYMPH % 9 % (24-48); MEAN CORPUSCULAR HEMOGLOBIN 30 pg (25-35); MEAN CORPUSCULAR HGB CONC 34 g/dL (31-37); MEAN CORPUSCULAR VOLUME 88 fL (79-100); MONO # 0.6 x10^3/uL (0.0-1.1); MONO % 4 % (0-9); NEUT # 12.9 x10^3uL (1.8-7.7); NEUT % 87 % (31-73); PLATELET COUNT 244 x10^3/uL (140-400); RED BLOOD COUNT 4.96 x10^6/uL (3.50-5.40); RED CELL DISTRIBUTION WIDTH 13.1 % (11.5-14.5); WHITE BLOOD COUNT 14.7 x10^3/uL (4.0-11.0)
[2018-07-07] MEDS ORDERED: IV NORMAL SALINE 1,000ML 1,000 ML IV ONE (08:00)
[2018-07-07 08:09] LABS: PREG TEST PT QUAL NEGATIVE (NEG)
--- NOTE | 2018-07-07 08:12 | RAD ---
CT of the head without contrast, 07/07/2018: HISTORY: Syncope The ventricles are within normal limits in size. There is no shift of the midline structures. There is no evidence of acute intracranial hemorrhage or mass effect. IMPRESSION: No significant abnormality is detected. Electronically signed by: Thai Aggarwal MD (07/07/2018 8:09 AM) [facility]
[2018-07-07 08:13] LABS: ALBUMIN 4.3 g/dL (3.4-5.0); ALBUMIN/GLOBULIN RATIO 1.2 (1.0-1.7); CALCIUM 9.6 mg/dL (8.5-10.1); CREATININE 1.1 mg/dL (0.6-1.0); GFR 62.7; POTASSIUM 3.8 mmol/L (3.5-5.1); TOTAL BILIRUBIN 0.7 mg/dL (0.2-1.0); TOTAL PROTEIN 7.8 g/dL (6.4-8.2)
--- NOTE | 2018-07-07 08:39 | EKG ---
[address] [address] Test Date: 2018-07-07 Test Time: 08:31:36 Pat Name: JULIA LI Department: Room: Gender: F Quality Lead: : 1995 Requested By: RAQUEL OBREGON Order Number: [id number] Reading MD: Pasquale Maher MD Measurements Intervals [place] Rate: 90 P: 62 [place]: 192 QRS: 56 QRSD: 84 T: 35 QT: 372 QTc: 459 Interpretive Statements SINUS RHYTHM Electronically Signed On 07-07-2018 11:00:48 CDT by Pasquale Maher MD
[2018-07-07] MEDS ORDERED: KETOROLAC 30 MG/ML VIAL. IV ONE (09:00)
[2018-07-07 09:03] LABS: BILIRUBIN,URINE NEG (NEG); CLARITY,URINE HAZY; COLOR,URINE STRAW; GLUCOSE,URINE NEG (NEG); NITRITE,URINE NEG (NEG); RBC,URINE OCC /HPF (0-2); UROBILINOGEN,URINE 0.2 mg/dL (0.2 mg/dL); WBC,URINE OCC /HPF (0-4)
[2018-07-07 09:04] LABS: BACTERIA,URINE FEW /HPF (0-FEW); GRANULAR CASTS,URINE OCC /HPF; HYALINE CASTS, URINE OCC /HPF; SQUAMOUS EPITHELIAL CELL,UR MOD /LPF
[2018-07-07 09:16] VITALS: BP 117/76
[2018-07-07] MEDS ORDERED: NAPR-683 PO (09:17)
[2018-07-08] MEDS ORDERED: MECLIZINE 12.5 MG TABLET. PO PRN (15:30)
[2018-07-11] MEDS ORDERED: MECL12.52 PO (12:36)
== END 2018-07-07 09:22 | disposition home or self-care (01) ==
LOC: ER 06:54
DX: R55 Syncope and collapse (principal); R51 Headache
CPT/HCPCS: 36415; 70450; 80053; 81001; 84443; 84484; 84703; 85025; 93005; 96361; 96374; 99285; J1885; J7030

== ENCOUNTER 2018-07-08 08:23 | Inpatient (IN) | payer OTHER ==
[~2018-07-08] VITALS: Ht 149.9 cm; Wt 50.4 kg
[2018-07-08] MEDS ORDERED: IV NORMAL SALINE 1,000ML 1,000 ML IV SCH (08:46)
--- NOTE | 2018-07-08 08:52 | PHYS DOC ---
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 Patient was seen in this emergency room after near syncopal episode and dizziness and weakness after physical activity and had unremarkable physical exam and labs and CT head and EKG with negative serum test and treated with IV fluid and felt better but states she is still having dizziness and generalized weakness and complaining of one episode of diarrhea this morning with nausea but denies focal neuro deficit, fever and chills, chest pain, shortness of breath. Patient had a frontal headache yesterday but today complaining of pain in left temporal area and rated her pain 3/10. Review of Systems Review of Systems Constitutional: Denies fever or chills [] Eyes: Denies change in visual acuity, redness, or eye pain [] HENT: Denies nasal congestion or sore throat [] Respiratory: Denies cough or shortness of breath [] Cardiovascular: No additional information not addressed in HPI [] GI: Denies abdominal pain, vomiting, reports nausea and diarrhea [] : Denies dysuria or hematuria [] Musculoskeletal: Denies back pain or joint pain [] Integument: Denies rash or skin lesions [] Neurologic: Reports headache, denies focal weakness or sensory changes [] Endocrine: Denies polyuria or polydipsia [] All other systems were reviewed and found to be within normal limits, except as documented in this note. Current Medications Current Medications Current Medications Medications (Trade) Dose Ordered Sig/Radha Start Time Stop Time Status Last Admin Dose Admin Ondansetron HCl (Zofran) 4 mg 1X ONCE 07/08/18 09:00 07/08/18 09:01 UNV Sodium Chloride 1,000 ml @ 1,000 mls/hr Q1H 07/08/18 08:46 07/08/18 09:45 UNV Allergies Allergies Allergies Coded Allergies Type Severity Reaction Last Updated Verified No Known Allergies Allergy Unknown 08/20/16 Yes Physical Exam Physical Exam Constitutional: Well developed, well nourished, mild acute distress, non-toxic appearance. [] HENT: Normocephalic, atraumatic, bilateral external ears normal, oropharynx moist, no oral exudates, nose normal. [] Eyes: PERRLA, EOMI, conjunctiva normal, no discharge. [] Neck: Normal range of motion, no tenderness, supple, no stridor. [] Cardiovascular:Heart rate regular rhythm, no murmur [] Lungs & Thorax: Bilateral breath sounds clear to auscultation [] Abdomen: Bowel sounds normal, soft, no tenderness, no masses, no pulsatile masses. [] Skin: Warm, dry, no erythema, no rash. [] Back: No tenderness, no CVA tenderness. [] Extremities: No tenderness, no cyanosis, no clubbing, ROM intact, no edema. [] Neurologic: Alert and oriented X 3, normal motor function, normal sensory function, no focal deficits noted. [] Psychologic: Affect normal, judgement normal, mood normal. [] EKG EKG [] Radiology/Procedures Radiology/Procedures [] Course & Med Decision Making Course & Med Decision Making Pertinent Labs reviewed. (See chart for details) Evaluation of patient in ER showed 23-year-old female patient presented for the second time to emergency room with complaining of dizziness and nausea and headache with unremarkable CT head and EKG and labs. Patient treated with IV fluid in ER and felt better. Dr. Cortez accepted admission at 0849. [] Dragon Disclaimer Dragon Disclaimer This electronic medical record was generated, in whole or in part, using a voice recognition dictation system. Departure Departure: Impression: Primary Impression: Dizziness Additional Impressions: Nausea Headache Diarrhea Disposition: 09 ADMITTED INPATIENT (at 0852) Admitting Physician: Armond Cortez (at 0849) Condition: STABLE Referrals: OBDULIO VALENZUELA PA-C (PCP) Problem Qualifiers RAQUEL OBREGON MD Jul 08, 2018 08:52
[2018-07-08] MEDS ORDERED: ONDANSETRON PF 4 MG/2 ML VIAL. IV PRN (09:00)
[2018-07-08] MEDS ORDERED: ONDANSETRON PF 4 MG/2 ML VIAL. IV ONE (09:00)
[2018-07-08 09:10] LABS: BASO % 1 % (0-3); EOS # 0.1 x10^3/uL (0.0-0.7); EOS % 1 % (0-3); HEMATOCRIT 39.8 % (36.0-47.0); HEMOGLOBIN 13.4 g/dL (12.0-15.5); LYMPH # 2.1 x10^3/uL (1.0-4.8); LYMPH % 25 % (24-48); MEAN CORPUSCULAR HEMOGLOBIN 30 pg (25-35); MEAN CORPUSCULAR HGB CONC 34 g/dL (31-37); MEAN CORPUSCULAR VOLUME 89 fL (79-100); MONO # 0.6 x10^3/uL (0.0-1.1); MONO % 7 % (0-9); NEUT # 5.7 x10^3uL (1.8-7.7); NEUT % 67 % (31-73); PLATELET COUNT 207 x10^3/uL (140-400); RED BLOOD COUNT 4.49 x10^6/uL (3.50-5.40); RED CELL DISTRIBUTION WIDTH 13.5 % (11.5-14.5); WHITE BLOOD COUNT 8.5 x10^3/uL (4.0-11.0)
[2018-07-08 09:12] LABS: CALCIUM 8.8 mg/dL (8.5-10.1); POTASSIUM 3.6 mmol/L (3.5-5.1)
[2018-07-08 10:11] VITALS: BP 109/70
[2018-07-08 10:13] VITALS: BP_SYST 111; BP_SYST 114; BP_DIAS 71; BP_DIAS 72
[2018-07-08 14:36] VITALS: BP 114/78
[2018-07-08 16:43] LABS: BILIRUBIN,URINE NEG (NEG); CLARITY,URINE HAZY; COLOR,URINE STRAW; GLUCOSE,URINE NEG (NEG); NITRITE,URINE NEG (NEG); RBC,URINE 0 /HPF (0-2); UROBILINOGEN,URINE 0.2 mg/dL (0.2 mg/dL)
[2018-07-08 16:44] LABS: BACTERIA,URINE FEW /HPF (0-FEW); SQUAMOUS EPITHELIAL CELL,UR FEW /LPF; WBC,URINE RARE /HPF (0-4)
[2018-07-08] MEDS: IV NORMAL SALINE 1,000ML 1,000 ML IV SCH ×2 (16:53→20:59)
--- NOTE | 2018-07-08 17:55 | HP ---
ADMIT DATE: 07/08/2018 HISTORY OF PRESENT ILLNESS: The patient is a 23-year-old female patient who basically came to the Emergency Room with a complaint of dizziness and nausea. She apparently was seen yesterday in the Emergency Room. 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 The patient states that she was not able to drive and called her after driving shelter to the hospital to give her a ride. She denied any history of same problems, , focal neurological deficit or vomiting. She apparently was evaluated in the Emergency Room, has had a CT scan of the head without contrast that showed no significant abnormalities detected and she was basically discharged home and advised to drink plenty of fluid and to follow with her primary care physician in 3-5 days; however, she has her symptoms again this morning when she came to the Emergency Room. She did have also an episode of diarrhea. She was evaluated in the Emergency Room. As of yesterday, she had actually leukocytosis and her test was negative and her chemistry was unremarkable. Urinalysis was unremarkable. She was admitted and was continued on IV fluid and to consult Dr. Castillo to assist with her management. She probably has some form of acute labyrinthitis. PAST MEDICAL HISTORY: Unremarkable. PAST SURGICAL HISTORY: She has had appendectomy and D and C for miscarriage. ALLERGIES: She has no known drug allergies. MEDICATIONS: She is on vitamin D. She is also on [id number] ibuprofen, naproxen, hydrocodone 5/325 one tablet every 6 hours, ondansetron for Zofran 4 mg every 8 hours, doxycycline hyclate 100 mg twice a day, and dicyclomine 20 mg for abdominal cramping. FAMILY HISTORY: She has 3 brothers and 3 sisters, all older. Her father is alive at the age of 6 and healthy. Mother is alive at age of 46 and has a thyroid problem. SOCIAL HISTORY: She is , has no children. Does not smoke, drink alcohol or recreational drugs. She is in service for the last 3 years. REVIEW OF SYSTEMS: The patient denied any blurring of vision, cataract, glaucoma or macular degeneration. Denied any earache, tinnitus or sensorineural deafness. Denied any nosebleeds, stuffy nose or postnasal drip. Denied any sore throat, sore tongue, or difficulty swallowing. Did complain of nausea, but no vomiting. She has diarrhea, but no constipation. Denied any hematemesis, melena or hematochezia. Denied any dysuria, frequency or hematuria. Denied any chest pain, shortness of breath, orthopnea, or paroxysmal nocturnal dyspnea. Denied any cough, phlegm or hemoptysis. Did complain of dizziness, lightheadedness, and the things spinning around. PHYSICAL EXAMINATION: GENERAL: On arrival today, she looked well, somewhat pale, but no jaundice, cyanosis, or thyromegaly. No jugular venous distension. No limb edema. VITAL SIGNS: Her heart rate was 65, blood pressure 114/78, temperature was 98.7, respiratory rate was 16 and oxygen saturation was 99%. HEAD, EYES, EARS, NOSE AND THROAT: Showed normocephalic, atraumatic. NECK: Supple. HEART: Showed normal first and second sounds. No gallop, rub or murmur. CHEST: Clear to auscultation. No crepitation or rhonchi. ABDOMEN: Distended, soft, nontender. No guarding or rigidity. No organomegaly. Hernial orifice intact. Bowel sounds normal. NEUROLOGIC: She was awake, alert, responding appropriately. All cranial nerves intact. EXTREMITIES: She moves her extremities without difficulty. She definitely has no cerebellar dysfunction. Romberg's test was negative. I could not really elicit any nystagmus. LABORATORY DATA: As of this morning showed a white cell count of 8500, hemoglobin 13, hematocrit 39, MCV 89 and platelet count 207,000. Her serum sodium was 142, potassium 3.6, chloride 109, bicarbonate 29, anion gap of 4, BUN 7, creatinine 1, estimated GFR was 70 mL per minute. Her glucose was 95 and calcium was 8.8. Her urinalysis was unremarkable. test was negative. PLAN: My plan is to continue with IV fluid. I will start her on meclizine and consult Dr. Castillo. Monitor her orthostatics and also get physical and occupational therapy and decide further management accordingly. JASON TUTTLE MD DR: JOSSELIN/rodney JOB#: [id number] / [id number]
[2018-07-08 19:21] VITALS: BP 103/69
[2018-07-08] MEDS: MECLIZINE 12.5 MG TABLET. PO PRN (21:03)
[2018-07-08 22:20] VITALS: BP 109/71
--- NOTE | 2018-07-09 03:38 | CONS ---
DATE OF CONSULTATION: 07/08/2018 REFERRING PHYSICIAN: Armond Cortez MD REASON FOR CONSULTATION: Severe dizziness. 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 Subsequently, she started experiencing dizziness like lightheadedness associated with nausea and possible near syncope. The patient stated she felt that she is going to pass out. Finally, she decided to come to Emergency Room for further evaluation. She tries to drive, but she was not feeling well during her driving. She was stopped by a traffic police and she subsequently called her to take her to the Emergency Room. On arrival to Emergency Room, the patient was alert, oriented, but somewhat dizzy. After obtaining head CT scan, which was negative for any intracranial process, the patient was discharged home and recommended her to drink plenty of fluid. This morning, the patient was described as lightheadedness upon awaking along with nausea followed by episode of diarrhea described as watery diarrhea time once. She denies hematuria or hematochezia. Initial test was negative along with blood test. Neuro consult was requested to rule out peripheral versus central vertigo. PAST MEDICAL HISTORY: Otherwise, unremarkable. PAST SURGICAL HISTORY: The patient had appendectomy and one miscarriage, required D and C. FAMILY HISTORY: Noncontributory. SOCIAL HISTORY: The patient is . She denies smoking, alcohol drinking or illicit drug use. She has no children. REVIEW OF SYSTEMS: A 10-point review of system was performed as mentioned above in the history of present illness; otherwise, unremarkable. PHYSICAL EXAMINATION: GENERAL: Well-developed, well-nourished female, not in acute distress. VITAL SIGNS: Blood pressure was 114/78, respiratory rate 18, pulse is 66 regular, oxygen saturation 99% on room air, temperature 98.7. HEENT: Normocephalic, atraumatic, otherwise, unremarkable. NECK: Supple. Negative for carotid bruit, lymphadenopathy or thyromegaly. LUNGS: Clear to A and P. CARDIOVASCULAR: Regular rate and rhythm, normal S1, S2. There is no S3, S4 or murmur. ABDOMEN: Soft. Bowel sounds positive. EXTREMITIES: Negative for cyanosis, clubbing or pitting edema. MENTAL STATUS: The patient is alert and oriented x 3. The speech is fluent. There is no language dysfunction. Memory, judgment and abstract thinking are normal. The patient denies hallucination or delusion. CRANIAL NERVES: Visual gandhi are full. The pupils are reactive to light and accommodation. Extraocular movements are intact. There is no nystagmus. There is no facial motor or sensory deficit. Hearing is intact bilaterally. The palate is elevated symmetrically. Sternocleidomastoid muscles are powerful bilaterally. The patient shrugs her shoulders symmetrically, protrudes her tongue in the midline without fasciculation or atrophy. MOTOR: No focal muscle bulk was seen. The tone is normal. The strength is 5/5 throughout. Sensory examination revealed normal pinprick, light touch, vibratory and position senses. Deep tendon reflexes are symmetric and active without pathologic responses. Gait and coordination are normal. LABORATORY DATA: CBC revealed white blood cells of 8.5 thousand, hemoglobin 13.4, hematocrit 39.8, platelet count 207,000. Chemistry revealed sodium of 142, potassium 3.6, chloride 109, CO2 of 29, BUN 7, creatinine 1, glucose is 95 and calcium 8.8. Urinalysis revealed no evidence of urinary tract infection. DIAGNOSTIC: Initial non-enhanced head CT scan revealed no evidence of acute intracranial process. IMPRESSION: Near syncope secondary to exhaustion and probably dehydration. Normal neurological examination. RECOMMENDATIONS: 1. Continue with IV fluid. 2. Agree with meclizine on p.r.n. basis. Check blood and pulse for possible orthostatic hypotension. M Tylor HANNA MD DR: SOFÍA/rodney JOB#: [id number] / [id number]
[2018-07-09] MEDS: IV NORMAL SALINE 1,000ML 1,000 ML IV SCH ×3 (04:54→20:12)
[2018-07-09 05:20] VITALS: BP 107/69
[2018-07-09 06:50] LABS: BASO % 1 % (0-3); EOS # 0.1 x10^3/uL (0.0-0.7); EOS % 2 % (0-3); HEMATOCRIT 33.5 % (36.0-47.0); HEMOGLOBIN 11.4 g/dL (12.0-15.5); LYMPH # 2.9 x10^3/uL (1.0-4.8); LYMPH % 39 % (24-48); MEAN CORPUSCULAR HEMOGLOBIN 30 pg (25-35); MEAN CORPUSCULAR HGB CONC 34 g/dL (31-37); MEAN CORPUSCULAR VOLUME 88 fL (79-100); MONO # 0.5 x10^3/uL (0.0-1.1); MONO % 7 % (0-9); NEUT # 3.9 x10^3uL (1.8-7.7); NEUT % 52 % (31-73); PLATELET COUNT 162 x10^3/uL (140-400); RED BLOOD COUNT 3.79 x10^6/uL (3.50-5.40); RED CELL DISTRIBUTION WIDTH 13.2 % (11.5-14.5); WHITE BLOOD COUNT 7.4 x10^3/uL (4.0-11.0)
[2018-07-09 07:01] LABS: ALBUMIN 2.6 g/dL (3.4-5.0); CALCIUM 8.1 mg/dL (8.5-10.1); CREATININE 0.9 mg/dL (0.6-1.0); POTASSIUM 3.4 mmol/L (3.5-5.1); TOTAL BILIRUBIN 0.4 mg/dL (0.2-1.0); TOTAL PROTEIN 5.1 g/dL (6.4-8.2)
[2018-07-09] MEDS ORDERED: POTASSIUM CHLORIDE 20 MEQ TABLET.ER. PO ONE (08:00)
[2018-07-09] MEDS: MECLIZINE 12.5 MG TABLET. PO PRN ×3 (08:43→22:17)
[2018-07-09 10:33] VITALS: BP 114/79
[2018-07-09 14:49] VITALS: BP 105/69
[2018-07-09 19:40] VITALS: BP 108/68
--- NOTE | 2018-07-09 22:18 | PN ---
DATE: SUBJECTIVE: The patient continues to complain of mild global headaches, 2/10 this morning. She was somewhat nauseated and dizziness. She was given meclizine. Currently, she is doing fine and she denies any chest pain, shortness of breath, palpitation, dysarthria, dysphagia or blurred vision. OBJECTIVE: GENERAL: Well-developed, well-nourished female, not in acute distress. VITAL SIGNS: Blood pressure 107/69, respiratory rate 18, pulse is 67, temperature 97.9, oxygen saturation 97% on room air. HEENT: Normocephalic, atraumatic, otherwise, unremarkable. NECK: Supple. Negative for carotid bruit, lymphadenopathy or thyromegaly. LUNGS: Clear to A and P. CARDIOVASCULAR: Regular rate and rhythm, normal S1, S2. There is no S3, S4 or murmur. ABDOMEN: Soft. Bowel sounds positive. EXTREMITIES: Negative for cyanosis, clubbing or pitting edema. NEUROLOGIC: Normal mental status and intact cranial nerves. There is no nystagmus. There is no focal motor or sensory deficit. Deep tendon reflexes were symmetric and active without pathology responses. Gait and coordination are normal. LABORATORY DATA: CBC revealed white blood cells of 7.4 thousand, hemoglobin 11.4, hematocrit 33.5, platelet count 162,000. Chemistry reveals sodium of 144, potassium 3.4, chloride 111, CO2 of 29, BUN 3, creatinine 0.9, glucose 90, calcium 8.1. Liver enzymes are normal. IMPRESSION: 1. Probably near syncope secondary to exertion and probably dehydration with current normal neurological examination. 2. Hypokalemia. RECOMMENDATIONS: 1. Continue with current management initiated by Dr. Mcrae. 2. Potassium supplements. M Tylor HANNA MD DR: SOFÍA/rodney JOB#: [id number] / [id number]
[2018-07-09 22:25] VITALS: BP 110/76
[2018-07-10] MEDS: MECLIZINE 12.5 MG TABLET. PO PRN ×2 (05:41→17:37)
[2018-07-10 05:54] VITALS: BP 104/70
--- NOTE | 2018-07-10 06:37 | PN ---
DATE: 07/09/2018 SUBJECTIVE: Ms. Lazo was admitted with a complaint of dizziness and near syncope. She was basically evaluated today by physical and occupational therapist and apparently she continued to have the complaint of being dizzy, especially when she stands in one leg. She has been on IV fluid to make sure that she is well hydrated. She was seen in consultation by Dr. Castillo, who basically felt that she has near syncope secondary to exhaustion and probably dehydration and recommended to continue with IV fluid and meclizine as needed. OBJECTIVE: GENERAL: On examining her today, she looked well and was clearly in no apparent respiratory distress, pale, no jaundice, cyanosis, or thyromegaly. No jugular venous distention. No limb edema. VITAL SIGNS: Her heart rate was 77, blood pressure 105/69, temperature was 98.7, respiratory rate was 16, and oxygen saturation was 95%. The rest of clinical examination is unremarkable. In particular, she has no obvious neurological deficit. I did a detailed neurological examination and all her cranial nerves are intact. She has no motor or sensory deficit. There is no cerebellar ataxia. Romberg test was negative. Her intake over the last 24 hours was . Output was recorded. LABORATORY DATA: Her lab work this morning showed a white cell count 7400, hemoglobin 11, hematocrit 33, MCV 88, and platelet count of 162,000. Her chemistry showed that her serum sodium was 144, potassium 3.4, chloride 111, bicarbonate 29, anion gap of 4, BUN 3, creatinine 0.9, estimated GFR was 79 mL per minute. Her glucose 90, calcium was 8.1. Total bilirubin, AST, ALT, alkaline phosphatase were normal. Total protein was 5.1, albumin was 2.9. Her urinalysis is unremarkable. ASSESSMENT: Dizziness and near syncope, likely due to exhaustion and dehydration, possible acute labyrinthitis. We will continue with IV fluid, continue with meclizine. Continue with physical and occupational therapy evaluate her again tomorrow. If her symptoms resolved, then she can be discharged. JASON TUTTLE MD DR: JOSSELIN/rodney JOB#: [id number] / [id number]
[2018-07-10 07:01] LABS: ALBUMIN 2.6 g/dL (3.4-5.0); CALCIUM 8.2 mg/dL (8.5-10.1); CREATININE 0.8 mg/dL (0.6-1.0); GFR 90.5; MAGNESIUM 1.6 mg/dL (1.8-2.4); POTASSIUM 3.9 mmol/L (3.5-5.1); TOTAL BILIRUBIN 0.2 mg/dL (0.2-1.0); TOTAL PROTEIN 5.1 g/dL (6.4-8.2)
[2018-07-10] MEDS: IV NORMAL SALINE 1,000ML 1,000 ML IV SCH ×2 (07:13→16:37)
[2018-07-10] MEDS ORDERED: ONDANSETRON PF 4 MG/2 ML VIAL. IV PRN (10:00)
[2018-07-10 10:52] VITALS: BP 111/70
[2018-07-10 13:47] LABS: BARBITURATES NEG (NEG); BENZODIAZEPINES NEG (NEG); CANNABINOIDS NEG (NEG); COCAINE NEG (NEG); METHADONE NEG (NEG); OPIATES NEG (NEG); PHENCYCLIDINE NEG (NEG)
[2018-07-10 13:52] LABS: AMPHETAMINE/METHAMPHETAMINE NEG (NEG)
[2018-07-10 14:50] VITALS: BP 100/63
[2018-07-10] MEDS ORDERED: MAGNESIUM SULFATE 2GM 50 ML IV ONE (16:15)
[2018-07-10] MEDS: MAGNESIUM SULFATE 1GM 100 ML IV SCH ×2 (16:37→17:38)
[2018-07-10 19:25] VITALS: BP 111/72
[2018-07-10] MEDS: MAGNESIUM OXIDE 400 MG TABLET PO SCH (20:49)
[2018-07-10 22:32] VITALS: BP 114/74
--- NOTE | 2018-07-10 22:38 | PN ---
DATE: SUBJECTIVE: The patient continues to have mild dizziness described as lightheadedness, but she feels much better than before. She takes meclizine for dizziness. She denies any other new medical or neurological complaints. OBJECTIVE: GENERAL: Well-developed, well-nourished female, not in acute distress. VITAL SIGNS: Blood pressure 104/70, respiratory rate 20, pulse is 62, temperature 98.7, oxygen saturation 98% on room air. HEENT: Normocephalic, atraumatic, otherwise unremarkable. NECK: Supple. Negative for carotid bruit, lymphadenopathy or thyromegaly. LUNGS: Clear to A and P. CARDIOVASCULAR: Regular rhythm, normal S1, S2. There is no S3, S4, or murmur. ABDOMEN: Soft. Bowel sounds positive. EXTREMITIES: Negative for cyanosis, clubbing or pitting edema. NEUROLOGIC: Normal mental status and intact cranial nerves. There is no nystagmus. No focal motor or sensory deficit. Deep tendon reflexes were symmetric and active without pathology responses. Gait and coordination are normal. IMPRESSION: Near syncope secondary to exertion and probably dehydration, presented with dizziness described as lightheadedness with mild headaches--improved. RECOMMENDATIONS: Continue with current management initiated by Dr. Cortez including meclizine on p.r.n. basis and hydration. M Tylor HANNA MD DR: SOFÍA/rodney JOB#: [id number] / [id number]
--- NOTE | 2018-07-11 03:08 | PN ---
DATE: 07/10/2018 SUBJECTIVE: The patient is a 23-year-old female patient who came in complaining of dizziness, presyncope and initially our impression was probably because of exhaustion and dehydration, was given IV fluids, was seen by Dr. Castillo and also physical and occupational therapy. Although she felt generally well, unfortunately her CK has dramatically risen to 5661 and we did actually a urine toxicology screen which was negative and therefore, I recommended to continue with IV fluid. I will replenish her magnesium and potassium. Repeat her labs tomorrow and if they are stable and she is stable, she can be discharged back home. OBJECTIVE: GENERAL: When I examined her this afternoon, she looked well and was clearly in no apparent respiratory distress, pale. No jaundice, cyanosis, or thyromegaly. No jugular venous distention. No limb edema. VITAL SIGNS: Her heart rate was 60, blood pressure 100/60, temperature was 98.8, respiratory rate 20, and oxygen saturation was 100% on room air. HEAD, EYES, EARS, NOSE AND THROAT: Normocephalic, atraumatic. NECK: Supple. HEART: Showed normal first and second heart sounds with no gallop, rub or murmur. CHEST: Clear to auscultation. No crepitation or rhonchi. ABDOMEN: Distended, soft, nontender. NEUROLOGIC: She is awake, alert, responding appropriately. All cranial nerves intact. She moves extremities without difficulty. She is able to walk without difficulty. Her intake over the last 24 hours was 3490, no output was recorded. LABORATORY DATA: This morning showed a serum sodium 142, potassium 3.9, chloride 110, bicarbonate 26, anion gap of 6, BUN 6, creatinine was 0.8, estimated GFR was 90 mL per minute. Her glucose was 92, calcium was 8.2, magnesium was 1.6. Total bilirubin, AST, ALT, alkaline phosphatase were normal. Her CK was high at 5661. Total protein was 5.1, albumin was 2.6. Her white cell count was 7400, hemoglobin 11, hematocrit 33, MCV 88, and platelet count of 162,000. Urine toxicology screen was essentially negative and urinalysis was essentially unremarkable. ASSESSMENT: 1. Dizziness and near syncope, likely due to exhaustion and dehydration. 2. Hypokalemia. 3. Rhabdomyolysis. 4. Protein-calorie malnutrition. PLAN: My plan is to continue with IV fluids. Will replenish her magnesium with 2 g of magnesium sulfate. Start her on magnesium oxide. I will repeat her lab works and encouraged the patient to move around to prevent the clots in her legs and if she remains stable tomorrow, we will discharge her home. JASON TUTTLE MD DR: JOSSELIN/rodney JOB#: [id number] / [id number]
[2018-07-11] MEDS: IV NORMAL SALINE 1,000ML 1,000 ML IV SCH (05:43)
[2018-07-11] MEDS: MECLIZINE 12.5 MG TABLET. PO PRN ×2 (05:43→12:26)
[2018-07-11 05:50] VITALS: BP 102/65
[2018-07-11 07:09] LABS: CALCIUM 8.1 mg/dL (8.5-10.1); CREATININE 0.9 mg/dL (0.6-1.0); MAGNESIUM 2.1 mg/dL (1.8-2.4); POTASSIUM 3.9 mmol/L (3.5-5.1)
[2018-07-11 10:36] VITALS: BP 104/67
[2018-07-11] MEDS: MAGNESIUM OXIDE 400 MG TABLET PO SCH (12:26)
[2018-07-11] MEDS ORDERED: MECL12.52 PO (12:36)
--- NOTE | 2018-07-11 20:14 | DS ---
DATE OF DISCHARGE: 07/11/2018 HOSPITAL COURSE: The patient is a 23-year-old female patient who was admitted with a complaint of dizziness and near syncope. She was admitted and was treated for possible exhaustion and dehydration with IV antibiotic. She also started on meclizine and she did fairly well; however, her muscle enzymes were noted to be elevated, although the patient herself denied any pain anywhere. I spoke with Dr. Castillo and the plan was for him to discharge her home with a note for her not to participate in exercises. We will repeat her lab works on 07/17/2018 including CK and also BMP and I made an appointment for her to be seen by Dr. Castillo next 07/18/2018, with a plan to arrange for perhaps an EMG and possible muscle biopsy if the muscle enzymes continue to rise. I also advised her to drink plenty of fluid and if her symptoms worsen or she has any more of muscle weakness, she should come to the hospital immediately. When I examined her today, she was sitting on the edge of the bed, eating her lunch comfortably, in no apparent distress. On questioning her, she denied any complaints. Nursing staff did not voice any concern. She was seen this morning by Dr. Castillo, and he was satisfied with her progress. She was seen also by the physical and occupational therapist and she has been steady in her gait. PHYSICAL EXAMINATION: GENERAL: When I examined her, she looked well and was clearly in no apparent respiratory distress, slightly pale, no jaundice or cyanosis. No lymphadenopathy, no thyromegaly. No jugular venous distension. No lower limb edema. VITAL SIGNS: Her heart rate was 66, blood pressure 104/67, temperature was 98.7, respiratory rate was 15 and oxygen saturation was 98% on room air. HEAD, EYES, EARS, NOSE AND THROAT: Showed normocephalic, atraumatic. NECK: Supple. HEART: Showed normal first and second heart sounds with no gallop, rub or murmur. CHEST: Clear to auscultation. No crepitation or rhonchi. ABDOMEN: Distended, soft, nontender. No guarding or rigidity. No organomegaly. Hernial orifice intact. Bowel sounds normal. NEUROLOGIC: She is awake, alert, responding appropriately. Cranial nerves intact. She moves extremities without difficulty. She ambulates without assistance or assistive devices. Her intake over the last 24 hours was 3865, output was incompletely recorded. LABORATORY DATA: This morning showed a serum sodium to be 144, potassium 3.9, chloride 109, bicarbonate 31, anion gap of 4, BUN 8, creatinine was 0.9, estimated GFR was 79 mL per minute. Her glucose was 95, calcium was 8.1, magnesium was 2.1. Total CK was 7164. Most recent white cell count was 7400, hemoglobin 11.4, hematocrit 33.5, MCV 88 and platelet count of 162,000. Urinalysis was unremarkable and urine toxicology screen was negative. DISCHARGE MEDICATIONS: The patient was discharged home to continue on meclizine 12.5 mg 4 times a day as needed. FINAL DISCHARGE DIAGNOSES: 1. Dizziness and presyncope. 2. Rhabdomyolysis. JASON TUTTLE MD DR: JOSSELIN/rodney JOB#: [id number] / [id number]
--- NOTE | 2018-07-11 21:24 | PN ---
DATE: SUBJECTIVE: The patient complains of mild headaches and mild dizziness; however, she has been up and down, walking, drinking, and eating without any problems. VITAL SIGNS: Blood pressure 102/65, respiratory rate 18, pulse is 71 and regular, temperature 97.8, oxygen saturation 98% on room air. HEENT: Normocephalic, atraumatic, otherwise unremarkable. NECK: Supple. Negative for carotid bruit, lymphadenopathy or thyromegaly. LUNGS: Clear to A and P. CARDIOVASCULAR: Regular rate and rhythm, normal S1, S2. There is no S3, S4 or murmur. ABDOMEN: Soft. Bowel sounds positive. EXTREMITIES: Negative for cyanosis, clubbing or pitting edema. NEUROLOGIC: Normal mental status and intact cranial nerves. There was no evidence of focal, motor, or sensory deficit. Deep tendon reflexes were symmetric and active without pathology responses. Gait and coordination were normal. IMPRESSION: 1. Syncope -- resolved. 2. Hypokalemia and hypomagnesemia. RECOMMENDATIONS: Continue with current management initiated by Dr. Cortez, who initiated some potassium and magnesium supplements. The patient is neurologically intact. M Tylor HANNA MD DR: SOFÍA/rodney JOB#: [id number] / [id number]
== END 2018-07-11 13:45 | disposition home or self-care (01) | DRG 557 ==
LOC: ER 08:23 → 1 SOUTH 08:53
PROVIDERS: ADMIT Internal Medicine; ATTEND Internal Medicine
DX: M62.82 Rhabdomyolysis (principal); E43 Unspecified severe protein-calorie malnutrition; E86.0 Dehydration; E87.6 Hypokalemia; E83.42 Hypomagnesemia; Z90.49 Acquired absence of other specified parts of digestive tract; Z68.22 Body mass index [BMI] 22.0-22.9, adult
CPT/HCPCS: 36415; 80048; 80053; 80307; 81001; 82550; 83735; 85025; 96361; 96374; J2405; J3475; J8597; 99285-25; G0479; J7030

== ENCOUNTER 2018-09-02 18:00 | Emergency (ER) | payer OTHER ==
[~2018-09-02 18:00] MED LIST changes: +MECL12.52 PO
[2018-09-02 18:10] VITALS: BP 110/67
[2018-09-02] MEDS ORDERED: IV NORMAL SALINE 1,000ML 1,000 ML IV ONE (18:15)
[2018-09-02 18:41] LABS: BASO % 0 % (0-3); EOS # 0.1 x10^3/uL (0.0-0.7); EOS % 1 % (0-3); HEMATOCRIT 37.9 % (36.0-47.0); HEMOGLOBIN 12.8 g/dL (12.0-15.5); LYMPH # 2.9 x10^3/uL (1.0-4.8); LYMPH % 23 % (24-48); MEAN CORPUSCULAR HEMOGLOBIN 29 pg (25-35); MEAN CORPUSCULAR HGB CONC 34 g/dL (31-37); MEAN CORPUSCULAR VOLUME 86 fL (79-100); MONO # 0.7 x10^3/uL (0.0-1.1); MONO % 6 % (0-9); NEUT # 8.9 x10^3uL (1.8-7.7); NEUT % 70 % (31-73); PLATELET COUNT 250 x10^3/uL (140-400); RED BLOOD COUNT 4.39 x10^6/uL (3.50-5.40); RED CELL DISTRIBUTION WIDTH 13.1 % (11.5-14.5); WHITE BLOOD COUNT 12.6 x10^3/uL (4.0-11.0)
[2018-09-02 18:53] LABS: ALBUMIN 3.9 g/dL (3.4-5.0); ALBUMIN/GLOBULIN RATIO 1.2 (1.0-1.7); CREATININE 0.8 mg/dL (0.6-1.0); GFR 90.5; POTASSIUM 3.5 mmol/L (3.5-5.1); TOTAL BILIRUBIN 0.7 mg/dL (0.2-1.0); TOTAL PROTEIN 7.2 g/dL (6.4-8.2)
--- NOTE | 2018-09-02 18:57 | PHYS DOC ---
Past History Past Medical History: No Pertinent History Past Surgical History: Appendectomy Smoking: Non-smoker Alcohol Use: None Drug Use: None Adult General Chief Complaint Chief Complaint: VAGINAL BLEEDING HPI HPI 23-year-old female who believes she is 5 weeks presents with vaginal bleeding. The patient has been feeling fine, which went to the restroom she noticed a little bit of bright red blood on the toilet paper when she wiped. She has had no abdominal pain, no cramping, and no further bleeding. She came in ambulatory to caution. She had her confirmed by urine at the doctor 's office a few days ago. She denies dysuria or urinary frequency. She denies vaginal discharge. She does not know her blood type. Nice fever or chills. Review of Systems Review of Systems Constitutional: Denies fever or chills [] Eyes: Denies change in visual acuity, redness, or eye pain [] HENT: Denies nasal congestion or sore throat [] Respiratory: Denies cough or shortness of breath [] Cardiovascular: No additional information not addressed in HPI [] GI: Denies abdominal pain, nausea, vomiting, bloody stools or diarrhea [] : Denies dysuria or hematuria [] Musculoskeletal: Denies back pain or joint pain [] Integument: Denies rash or skin lesions [] Neurologic: Denies headache, focal weakness or sensory changes [] Endocrine: Denies polyuria or polydipsia [] All other systems were reviewed and found to be within normal limits, except as documented in this note. Current Medications Current Medications Current Medications Medications (Trade) Dose [place] [facility] [place] Start Time Stop Time Status Last Admin Dose Admin Sodium Chloride 1,000 ml @ 1,000 mls/hr 1X ONCE 09/02/18 18:15 09/02/18 19:14 09/02/18 18:15 1,000 MLS/HR Allergies Allergies Allergies Coded Allergies Type Severity Reaction Last Updated Verified No Known Allergies Allergy Unknown 08/20/16 Yes Physical Exam Physical Exam Constitutional: Well developed, well nourished, no acute distress, non-toxic appearance. [] HENT: Normocephalic, atraumatic, bilateral external ears normal, oropharynx moist, no oral exudates, nose normal. [] Eyes: PERRLA, EOMI, conjunctiva normal, no discharge. [] Neck: Normal range of motion, no tenderness, supple, no stridor. [] Cardiovascular:Heart rate regular rhythm, no murmur [] Lungs & Thorax: Bilateral breath sounds clear to auscultation [] Abdomen: Bowel sounds normal, soft, no tenderness, no masses, no pulsatile masses. [] Skin: Warm, dry, no erythema, no rash. [] Back: No tenderness, no CVA tenderness. [] Extremities: No tenderness, no cyanosis, no clubbing, ROM intact, no edema. [] Neurologic: Alert and oriented X 3, normal motor function, normal sensory function, no focal deficits noted. [] Psychologic: Affect normal, judgement normal, mood normal. [] Current Patient Data Vital Signs Vital Signs Date Time Temp Pulse Resp B/P (MAP) Pulse Ox O2 Delivery O2 Flow Rate FiO2 09/02/18 18:10 98.3 64 18 100 Room Air Lab Results Laboratory Tests Test 09/02/18 18:23 White Blood Count 12.6 x10^3/uL (4.0-11.0) H Red Blood Count 4.39 x10^6/uL (3.50-5.40) Hemoglobin 12.8 g/dL (12.0-15.5) Hematocrit 37.9 % (36.0-47.0) Mean Corpuscular Volume 86 fL (79-100) Mean Corpuscular Hemoglobin 29 pg (25-35) Mean Corpuscular Hemoglobin Concent 34 g/dL (31-37) Red Cell Distribution Width 13.1 % (11.5-14.5) Platelet Count 250 x10^3/uL (140-400) Neutrophils (%) (Auto) 70 % (31-73) Lymphocytes (%) (Auto) 23 % (24-48) L Monocytes (%) (Auto) 6 % (0-9) Eosinophils (%) (Auto) 1 % (0-3) Basophils (%) (Auto) 0 % (0-3) Neutrophils # (Auto) 8.9 x10^3uL (1.8-7.7) H Lymphocytes # (Auto) 2.9 x10^3/uL (1.0-4.8) Monocytes # (Auto) 0.7 x10^3/uL (0.0-1.1) Eosinophils # (Auto) 0.1 x10^3/uL (0.0-0.7) Basophils # (Auto) 0.0 x10^3/uL (0.0-0.2) EKG EKG [] Radiology/Procedures Radiology/Procedures [] Impressions: Indication:vag bleeding TECHNIQUE: First trimester OB ultrasound COMPARISON: 01/02/2018 FINDINGS: Uterus is anteverted and measures 9.1 x 5.8 x 4.7 mm (longitudinal, transverse, AP). The right ovary measures 3.3 x 1.8 x 1.7 cm and demonstrates evidence of blood flow. The left ovary measures 2.3 x 1.8 x 1.3 cm and demonstrates evidence of blood flow. 10.2 x 0.3 x 0.6 cm crescent shaped hypoechoic lesion adjacent to the endometrium most likely a small subchorionic bleed. Single intrauterine gestation sac is seen. Yolk sac is seen measuring 4 mm. pole is seen with crown-rump length measuring 0.57 cm corresponding to gestation age of 6 weeks 3 days. Heart rate is seen at the rate of 114 bpm. IMPRESSION: 1. Single viable intrauterine with estimated gestation age of 6 weeks 2 days. 2. Small subchorionic bleed. Follow-up ultrasound recommended. Electronically signed by: Floyd Monroe DO (09/02/2018 8:27 PM) [facility] DICTATED AND SIGNED BY: FLOYD MONROE DO DATE: 09/02/182022 CC: CLEMENTE MEADE DO; OBDULIO VALENZUELA PA-C Course & Med Decision Making Course & Med Decision Making Pertinent Labs and Imaging studies reviewed. (See chart for details) The patient also shows an intrauterine and the base heart rate is 114. There is a subchorionic hemorrhage that the patient will need follow-up with OB. She is stable for discharge at this time. [] Dragon Disclaimer Dragon Disclaimer This electronic medical record was generated, in whole or in part, using a voice recognition dictation system. Departure Departure: Referrals: OBDULIO VALENZUELA PA-C (PCP) CLEMENTE MEADE DO Sep 02, 2018 18:57
--- NOTE | 2018-09-02 20:30 | RAD ---
Indication:vag bleeding TECHNIQUE: First trimester OB ultrasound COMPARISON: 01/02/2018 FINDINGS: Uterus is anteverted and measures 9.1 x 5.8 x 4.7 mm (longitudinal, transverse, AP). The right ovary measures 3.3 x 1.8 x 1.7 cm and demonstrates evidence of blood flow. The left ovary measures 2.3 x 1.8 x 1.3 cm and demonstrates evidence of blood flow. 10.2 x 0.3 x 0.6 cm crescent shaped hypoechoic lesion adjacent to the endometrium most likely a small subchorionic bleed. Single intrauterine gestation sac is seen. Yolk sac is seen measuring 4 mm. pole is seen with crown-rump length measuring 0.57 cm corresponding to gestation age of 6 weeks 3 days. Heart rate is seen at the rate of 114 bpm. IMPRESSION: 1. Single viable intrauterine with estimated gestation age of 6 weeks 2 days. 2. Small subchorionic bleed. Follow-up ultrasound recommended. Electronically signed by: Floyd Kaur DO (09/02/2018 8:27 PM) [facility]
== END 2018-09-02 21:16 | disposition home or self-care (01) ==
LOC: ER 18:00
DX: O20.8 Other hemorrhage in early pregnancy (principal); Z3A.01 Less than 8 weeks gestation of pregnancy
CPT/HCPCS: 36415; 76801; 80053; 84702; 85025; 86900; 86901; 99285; J7030

== ENCOUNTER 2018-09-05 12:35 | Emergency (ER) | payer OTHER ==
[~2018-09-05] VITALS: Ht 149.9 cm; Wt 51.7 kg
--- NOTE | 2018-09-05 14:20 | PHYS DOC ---
Past History Past Medical History: No Pertinent History Past Surgical History: Appendectomy Smoking: Non-smoker Alcohol Use: None Drug Use: None Adult General Chief Complaint Chief Complaint: VAGINAL BLEEDING HPI HPI Patient is a 23 year old female at 6 weeks of gestation who presents with complaining of vaginal bleeding. Patient states she was seen in this emergency room 2 days ago with vaginal spotting and had unremarkable OB ultrasound and labs with hCG level of 74,000 and intrauterine at 6 weeks of gestation. Patient states she had 1 episodes of blood clots in her underwear before arriving to emergency room without abdominal cramping pain, chest pain, shortness of breath, dizziness and palpitation. Last intercourse was about 2 weeks ago and her LMP was July 21, 2018. Patient had blood type of A+. Review of Systems Review of Systems Constitutional: Denies fever or chills [] Eyes: Denies change in visual acuity, redness, or eye pain [] HENT: Denies nasal congestion or sore throat [] Respiratory: Denies cough or shortness of breath [] Cardiovascular: No additional information not addressed in HPI [] GI: Denies abdominal pain, nausea, vomiting, bloody stools or diarrhea [] : Denies dysuria or hematuria [] Musculoskeletal: Denies back pain or joint pain [] Integument: Denies rash or skin lesions [] Neurologic: Denies headache, focal weakness or sensory changes [] Endocrine: Denies polyuria or polydipsia [] All other systems were reviewed and found to be within normal limits, except as documented in this note. Allergies Allergies Allergies Coded Allergies Type Severity Reaction Last Updated Verified No Known Allergies Allergy Unknown 08/20/16 Yes Physical Exam Physical Exam Constitutional: Well developed, well nourished, no acute distress, non-toxic appearance. [] HENT: Normocephalic, atraumatic Eyes: PERRLA, EOMI, conjunctiva normal, no discharge. [] Neck: Normal range of motion, no tenderness, supple, no stridor. [] Cardiovascular:Heart rate regular rhythm, no murmur [] Lungs & Thorax: Bilateral breath sounds clear to auscultation [] Abdomen: Bowel sounds normal, soft, no tenderness, no masses, no pulsatile masses. She refuses vaginal exam. [] Skin: Warm, dry, no erythema, no rash. [] Back: No tenderness, no CVA tenderness. [] Extremities: No tenderness, no cyanosis, no clubbing, ROM intact, no edema. [] Neurologic: Alert and oriented X 3, normal motor function, normal sensory function, no focal deficits noted. [] Psychologic: Affect normal, judgement normal, mood normal. [] Current Patient Data Vital Signs Vital Signs Date Time Temp Pulse Resp B/P (MAP) Pulse Ox O2 Delivery O2 Flow Rate FiO2 09/05/18 12:50 99.0 98 20 99 Room Air Lab Results Laboratory Tests Test 09/05/18 12:55 Maternal Serum HCG Beta Subunit 82577 mIU/mL (0-6) H EKG EKG [] Radiology/Procedures Radiology/Procedures [] Course & Med Decision Making Course & Med Decision Making Pertinent Labs reviewed. (See chart for details) Evaluation of patient in ER showed 23-year-old female patient with complaining of vaginal bleeding. Patient seen in this emergency room 2 days ago and had intrauterine at 6 weeks and hCG level of 74,000 and blood type of A+. Patient had hCG level of 95,000 today and did not want to have vaginal exam. Patient psychiatric to follow-up with her SURGERY MANAGER. Dragon Disclaimer Dragon Disclaimer This electronic medical record was generated, in whole or in part, using a voice recognition dictation system. Departure Departure: Impression: Primary Impression: Threatened Disposition: HOME, SELF-CARE (at 1418) Condition: STABLE Referrals: OBDULIO VALENZUELA PA-C (PCP) Patient Instructions: Threatened Miscarriage Additional Instructions: Drink plenty of liquids Follow-up with your SURGERY MANAGER physician in 3-5 days Return to ER if not getting better RAQUEL OBREGON MD Sep 05, 2018 14:20
[2018-09-05 14:24] VITALS: BP 110/67
== END 2018-09-05 14:26 | disposition home or self-care (01) ==
LOC: ER 12:35
DX: O20.0 Threatened abortion (principal); Z3A.01 Less than 8 weeks gestation of pregnancy
CPT/HCPCS: 36415; 84702; 99283

== ENCOUNTER 2018-09-18 17:33 | Emergency (ER) | payer OTHER ==
[~2018-09-18] VITALS: Ht 149.9 cm; Wt 50.8 kg
[2018-09-18 18:08] LABS: BASO % 0 % (0-3); EOS # 0.2 x10^3/uL (0.0-0.7); EOS % 1 % (0-3); HEMATOCRIT 35.4 % (36.0-47.0); HEMOGLOBIN 11.9 g/dL (12.0-15.5); LYMPH # 2.6 x10^3/uL (1.0-4.8); LYMPH % 20 % (24-48); MEAN CORPUSCULAR HEMOGLOBIN 29 pg (25-35); MEAN CORPUSCULAR HGB CONC 34 g/dL (31-37); MEAN CORPUSCULAR VOLUME 86 fL (79-100); MONO # 0.7 x10^3/uL (0.0-1.1); MONO % 5 % (0-9); NEUT # 9.3 x10^3uL (1.8-7.7); NEUT % 73 % (31-73); PLATELET COUNT 227 x10^3/uL (140-400); RED BLOOD COUNT 4.11 x10^6/uL (3.50-5.40); RED CELL DISTRIBUTION WIDTH 13.2 % (11.5-14.5); WHITE BLOOD COUNT 12.8 x10^3/uL (4.0-11.0)
--- NOTE | 2018-09-18 18:09 | PHYS DOC ---
Past History Past Medical History: No Pertinent History Past Surgical History: Appendectomy Smoking: Non-smoker Alcohol Use: None Drug Use: None Adult General Chief Complaint Chief Complaint: ABDOMINAL PAIN IN HPI HPI 23-year-old email presents with sharp, stabbing abdominal pain in the central abdomen. This started about 30 minutes prior to arrival. The patient has had no bleeding or spotting. She had an ultrasound at 6 weeks that was reported to be normal for 6 weeks of . She denies dysuria or increased urinary frequency. She lost her first at 2 months gestation. Patient' s blood type is A+. She denies fever or chills. Review of Systems Review of Systems Constitutional: Denies fever or chills [] Eyes: Denies change in visual acuity, redness, or eye pain [] HENT: Denies nasal congestion or sore throat [] Respiratory: Denies cough or shortness of breath [] Cardiovascular: No additional information not addressed in HPI [] GI: Abdominal pain[] : Denies dysuria or hematuria [] Musculoskeletal: Denies back pain or joint pain [] Integument: Denies rash or skin lesions [] Neurologic: Denies headache, focal weakness or sensory changes [] Endocrine: Denies polyuria or polydipsia [] All other systems were reviewed and found to be within normal limits, except as documented in this note. Allergies Allergies Allergies Coded Allergies Type Severity Reaction Last Updated Verified No Known Allergies Allergy Unknown 08/20/16 Yes Physical Exam Physical Exam Constitutional: Well developed, well nourished, no acute distress, non-toxic appearance. [] HENT: Normocephalic, atraumatic, bilateral external ears normal, oropharynx moist, no oral exudates, nose normal. [] Eyes: PERRLA, EOMI, conjunctiva normal, no discharge. [] Neck: Normal range of motion, no tenderness, supple, no stridor. [] Cardiovascular:Heart rate regular rhythm, no murmur [] Lungs & Thorax: Bilateral breath sounds clear to auscultation [] Abdomen: Bowel sounds normal, soft, no tenderness, gravid uterus.[] Skin: Warm, dry, no erythema, no rash. [] Back: No tenderness, no CVA tenderness. [] Extremities: No tenderness, no cyanosis, no clubbing, ROM intact, no edema. [] Neurologic: Alert and oriented X 3, normal motor function, normal sensory function, no focal deficits noted. [] Psychologic: Affect normal, judgement normal, mood normal. [] Current Patient Data Vital Signs Vital Signs Date Time Temp Pulse Resp B/P (MAP) Pulse Ox O2 Delivery O2 Flow Rate FiO2 09/18/18 17:44 98.0 74 18 Room Air EKG EKG [] Radiology/Procedures Radiology/Procedures [] Course & Med Decision Making Course & Med Decision Making Pertinent Labs and Imaging studies reviewed. (See chart for details) Labs are pending. The ultrasound is pending. I signed this patient out to at 1800. [] Dragon Disclaimer Dragon Disclaimer This electronic medical record was generated, in whole or in part, using a voice recognition dictation system. Departure Departure: Referrals: OBDULIO VALENZUELA PA-C (PCP) CLEMENTE MEADE DO Sep 18, 2018 18:09
[2018-09-18 18:22] LABS: ALBUMIN 3.3 g/dL (3.4-5.0); ALBUMIN/GLOBULIN RATIO 0.9 (1.0-1.7); CALCIUM 8.4 mg/dL (8.5-10.1); CREATININE 0.6 mg/dL (0.6-1.0); GFR 126.2; POTASSIUM 3.7 mmol/L (3.5-5.1); TOTAL BILIRUBIN 0.3 mg/dL (0.2-1.0); TOTAL PROTEIN 6.9 g/dL (6.4-8.2)
[2018-09-18 18:25] LABS: BACTERIA,URINE 0 /HPF (0-FEW); BILIRUBIN,URINE NEG (NEG); CLARITY,URINE CLEAR; COLOR,URINE YELLOW; GLUCOSE,URINE NEG (NEG); NITRITE,URINE NEG (NEG); RBC,URINE 0 /HPF (0-2); SQUAMOUS EPITHELIAL CELL,UR FEW /LPF; UROBILINOGEN,URINE 1 mg/dL (0.2 mg/dL); WBC,URINE RARE /HPF (0-4)
--- NOTE | 2018-09-18 19:24 | RAD ---
EXAM: Obstetrics sonogram. HISTORY: Cramping. TECHNIQUE: Transabdominal sonographic imaging of the pelvis was performed. COMPARISON: 09/02/2018. FINDINGS: There is a single intrauterine gestational sac with pole. The crown-rump length is 1.9 cm, corresponding with an estimated gestational age of 8 weeks and 4 days. The heart rate is 133 bpm. The uterus is normal in size. The gestational sac is normal in configuration. No subchorionic hematoma is seen. The yolk sac is normal in caliber. The ovaries are normal in size and demonstrate normal blood flow. There is no pelvic free fluid. The amniotic fluid level is unremarkable. IMPRESSION: Single intrauterine fetus with an estimated gestational age of 8 weeks and 4 days and heart rate of 173 bpm. Electronically signed by: Trina Stone MD (09/18/2018 7:21 PM) [facility]
[2018-09-18 19:48] VITALS: BP 110/72
== END 2018-09-18 20:34 | disposition home or self-care (01) ==
LOC: ER 17:33
DX: O99.611 Diseases of the digestive system complicating pregnancy, first trimester (principal); K52.9 Noninfective gastroenteritis and colitis, unspecified; Z3A.08 8 weeks gestation of pregnancy; Z90.89 Acquired absence of other organs
CPT/HCPCS: 36415; 76801; 80053; 81001; 84702; 85025; 99285

== ENCOUNTER 2018-11-07 11:09 | Emergency (ER) | payer OTHER ==
[~2018-11-07] VITALS: Ht 149.9 cm; Wt 50.3 kg
[~2018-11-07 11:09] MED LIST changes: +HYDR-3165 PO; -HYDR-971 PO
[2018-11-07] MEDS ORDERED: IV NORMAL SALINE 1,000ML 1,000 ML IV SCH (11:28)
[2018-11-07] MEDS ORDERED: ACETAMINOPHEN 500 MG TABLET PO ONE (12:00)
[2018-11-07] MEDS ORDERED: ONDANSETRON PF 4 MG/2 ML VIAL. IV ONE (12:00)
[2018-11-07 12:25] LABS: BASO % 0 % (0-3); EOS % 0 % (0-3); LYMPH # 0.3 x10^3/uL (1.0-4.8); LYMPH % 3 % (24-48); MEAN CORPUSCULAR HEMOGLOBIN 30 pg (25-35); MEAN CORPUSCULAR HGB CONC 34 g/dL (31-37); MEAN CORPUSCULAR VOLUME 88 fL (79-100); MONO # 0.7 x10^3/uL (0.0-1.1); MONO % 6 % (0-9); NEUT # 9.5 x10^3uL (1.8-7.7); NEUT % 91 % (31-73); PLATELET COUNT 162 x10^3/uL (140-400); RED BLOOD COUNT 3.98 x10^6/uL (3.50-5.40); RED CELL DISTRIBUTION WIDTH 13.8 % (11.5-14.5); WHITE BLOOD COUNT 10.5 x10^3/uL (4.0-11.0)
[2018-11-07 12:38] LABS: BACTERIA,URINE FEW /HPF (0-FEW); BILIRUBIN,URINE NEG (NEG); CLARITY,URINE HAZY; COLOR,URINE YELLOW; GLUCOSE,URINE NEG (NEG); NITRITE,URINE NEG (NEG); RBC,URINE 0 /HPF (0-2); SQUAMOUS EPITHELIAL CELL,UR MANY /LPF; UROBILINOGEN,URINE 1 mg/dL (0.2 mg/dL)
[2018-11-07 12:41] LABS: ALBUMIN 3.3 g/dL (3.4-5.0); CALCIUM 8.7 mg/dL (8.5-10.1); CREATININE 0.6 mg/dL (0.6-1.0); GFR 126.2; POTASSIUM 4.1 mmol/L (3.5-5.1); TOTAL BILIRUBIN 0.6 mg/dL (0.2-1.0); TOTAL PROTEIN 6.7 g/dL (6.4-8.2)
[2018-11-07] MEDS ORDERED: ONDA4TAB7 PO (13:34)
--- NOTE | 2018-11-07 13:35 | PHYS DOC ---
Past History Past Medical History: No Pertinent History Past Surgical History: Appendectomy, Other Smoking: Non-smoker Alcohol Use: None Drug Use: None Adult General Chief Complaint Chief Complaint: WEAKNESS/GENERALIZED HPI HPI Patient is a 23 year old female at 15 weeks of gestation with history of migraine headache who presents with obtaining of headache and one episode of nausea since this morning. Patient states she had migraine headaches like her usual migraine headache and vomited once and felt weak. Patient denies abdominal pain, vaginal bleeding, urinary symptoms, chest pain and shortness of breath, focal neuro deficit, fever and chills, neck pain and injury. Review of Systems Review of Systems Constitutional: Denies fever or chills [] Eyes: Denies change in visual acuity, redness, or eye pain [] HENT: Denies nasal congestion or sore throat [] Respiratory: Denies cough or shortness of breath [] Cardiovascular: No additional information not addressed in HPI [] GI: Denies abdominal pain, bloody stools or diarrhea, reports nausea and vomiting [] : Denies dysuria or hematuria [] Musculoskeletal: Denies back pain or joint pain [] Integument: Denies rash or skin lesions [] Neurologic: Reports headache, denies focal weakness or sensory changes [] Endocrine: Denies polyuria or polydipsia [] All other systems were reviewed and found to be within normal limits, except as documented in this note. Current Medications Current Medications Current Medications Medications (Trade) Dose Ordered [facility] Start Time Stop Time Status Last Admin Dose Admin Acetaminophen (Tylenol) 1,000 mg 1X ONCE 11/07/18 12:00 11/07/18 12:01 IA 11/07/18 12:43 1,000 MG Ondansetron HCl (Zofran) 4 mg 1X ONCE 11/07/18 12:00 11/07/18 12:01 DC 11/07/18 12:43 4 MG Sodium Chloride 1,000 ml @ 1,000 mls/hr Q1H 11/07/18 11:28 11/07/18 12:27 DC 11/07/18 12:43 1,000 MLS/HR Allergies Allergies Allergies Coded Allergies Type Severity Reaction Last Updated Verified No Known Allergies Allergy Unknown 08/20/16 Yes Physical Exam Physical Exam Constitutional: Well developed, well nourished, mild distress, non-toxic appearance. [] HENT: Normocephalic, atraumatic, oropharynx moist, no oral exudates, nose normal. [] Eyes: PERRLA, EOMI, conjunctiva normal, no discharge. [] Neck: Normal range of motion, no tenderness, supple, no stridor. [] Cardiovascular:Heart rate regular rhythm, no murmur [] Lungs & Thorax: Bilateral breath sounds clear to auscultation [] Abdomen: Bowel sounds normal, soft, no tenderness, no masses, no pulsatile masses, heart rate 183. [] Skin: Warm, dry, no erythema, no rash. [] Back: No tenderness, no CVA tenderness. [] Extremities: No tenderness, no cyanosis, no clubbing, ROM intact, no edema. [] Neurologic: Alert and oriented X 3, normal motor function, normal sensory function, no focal deficits noted. [] Psychologic: Affect normal, judgement normal, mood normal. [] Current Patient Data Vital Signs Vital Signs Date Time Temp Pulse Resp B/P (MAP) Pulse Ox O2 Delivery O2 Flow Rate FiO2 11/07/18 11:09 98.6 88 20 99 Room Air Lab Results Laboratory Tests Test 11/07/18 12:00 11/07/18 12:10 11/07/18 12:18 Urine Collection Type Unknown Urine Color Yellow Urine Clarity Hazy Urine pH 5.5 Urine Specific [place] >=1.030 Urine Protein Neg (NEG-TRACE) Urine Glucose (UA) Neg mg/dL (NEG) Urine Ketones (Stick) >=160 mg/dL (NEG) Urine Blood Neg (NEG) Urine Nitrite Neg (NEG) Urine Bilirubin Neg (NEG) Urine Urobilinogen Dipstick 1 mg/dL (0.2 mg/dL) Urine Leukocyte Esterase Neg (NEG) Urine RBC 0 /HPF (0-2) Urine WBC 1-4 /HPF (0-4) Urine Squamous Epithelial Cells Many /LPF Urine Bacteria Few /HPF (0-FEW) White Blood Count 10.5 x10^3/uL (4.0-11.0) Red Blood Count 3.98 x10^6/uL (3.50-5.40) Hemoglobin 12.0 g/dL (12.0-15.5) Hematocrit 35.0 % (36.0-47.0) L Mean Corpuscular Volume 88 fL (79-100) Mean Corpuscular Hemoglobin 30 pg (25-35) Mean Corpuscular Hemoglobin Concent 34 g/dL (31-37) Red Cell Distribution Width 13.8 % (11.5-14.5) Platelet Count 162 x10^3/uL (140-400) Neutrophils (%) (Auto) 91 % (31-73) H Lymphocytes (%) (Auto) 3 % (24-48) L Monocytes (%) (Auto) 6 % (0-9) Eosinophils (%) (Auto) 0 % (0-3) Basophils (%) (Auto) 0 % (0-3) Neutrophils # (Auto) 9.5 x10^3uL (1.8-7.7) H Lymphocytes # (Auto) 0.3 x10^3/uL (1.0-4.8) L Monocytes # (Auto) 0.7 x10^3/uL (0.0-1.1) Eosinophils # (Auto) 0.0 x10^3/uL (0.0-0.7) Basophils # (Auto) 0.0 x10^3/uL (0.0-0.2) Sodium Level 134 mmol/L (136-145) L Potassium Level 4.1 mmol/L (3.5-5.1) Chloride Level 101 mmol/L (98-107) Carbon Dioxide Level 25 mmol/L (21-32) Anion Gap 8 (6-14) Blood Urea Nitrogen 7 mg/dL (7-20) Creatinine 0.6 mg/dL (0.6-1.0) Estimated GFR (Cockcroft-Gault) 126.2 BUN/Creatinine Ratio 12 (6-20) Glucose Level 86 mg/dL (70-99) Calcium Level 8.7 mg/dL (8.5-10.1) Total Bilirubin 0.6 mg/dL (0.2-1.0) Aspartate Amino Transferase (AST) 18 U/L (15-37) Alanine Aminotransferase (ALT) 18 U/L (14-59) Alkaline Phosphatase 50 U/L (46-116) Total Protein 6.7 g/dL (6.4-8.2) Albumin 3.3 g/dL (3.4-5.0) L Albumin/Globulin Ratio 1.0 (1.0-1.7) POC Urine HCG, Qualitative hcg positive (Negative) EKG EKG [] Radiology/Procedures Radiology/Procedures [] Course & Med Decision Making Course & Med Decision Making Pertinent Labs reviewed. (See chart for details) Evaluation of patient in ER showed 23-year-old female patient 15 weeks of gestation with complaining of migraine headache since this morning with one episode of vomiting. Patient had unremarkable physical exam and felt better after treatment with IV fluid and Zofran. Labs was unremarkable. Plan discharge patient home to diagnose of migraine headaches in . Dragon Disclaimer Dragon Disclaimer This electronic medical record was generated, in whole or in part, using a voice recognition dictation system. Departure Departure: Impression: Primary Impression: Vomiting during Additional Impression: Migraine headache Disposition: HOME, SELF-CARE (at 1332) Condition: IMPROVED Referrals: OBDULIO VALENZUELA PA-C (PCP) Patient Instructions: Migraine Headache, Nausea and Vomiting Additional Instructions: Drink plenty of liquids Follow-up with your primary care physician in 3-5 days Return to ER if not getting better Scripts Ondansetron Hcl (ZOFRAN) 4 Mg Tablet 1 TAB PO Q6HRS for nausea and vomiting, #12 TAB Prov: RAQUEL OBREGON MD 11/07/18 Problem Qualifiers RAQUEL OBREGON MD Nov 07, 2018 13:35
[2018-11-07 13:45] VITALS: BP 132/78
== END 2018-11-07 14:00 | disposition home or self-care (01) ==
LOC: ER 11:09
DX: O26.892 Other specified pregnancy related conditions, second trimester (principal); G43.909 Migraine, unspecified, not intractable, without status migrainosus; O21.9 Vomiting of pregnancy, unspecified; Z3A.15 15 weeks gestation of pregnancy
CPT/HCPCS: 36415; 80053; 81001; 81025; 85025; 96361; 96374; 99283; J2405; J7030